=== PATIENT | male | born 1945 | race Caucasian/White ===

== ENCOUNTER 2023-09-19 12:51 | Inpatient (IN) | payer MEDICARE, OTHER, SELFPAY ==
[2023-09-19] VITALS (9 sets, daily range): BP systolic 124–159; BP diastolic 70–94; BMI 31.6; BMI 34.6
[2023-09-19 10:37] LABS: % Basophils 0.2 % (0-2); % Immature Granulocytes 2.6 % (0-0.5); % Lymphocytes 5.5 % (20.5-51.1); % Monocytes 6.7 % (1.7-9.3); Absolute Basophils 0.1 10^3/uL (0-0.2); Absolute Immature Granulocytes 0.6 10^3/uL (0-0.05); Absolute Lymphocytes 1.2 10^3/uL (1.2-3.4); Absolute Monocytes 1.4 10^3/uL (0.1-0.6); Absolute Neutrophils 18.4 10^3/uL (1.4-6.5); Hematocrit 40.6 % (39.0-52.0); Hemoglobin 13.9 g/dL (13.0-18.0); Mean Corp Hgb Conc. 34.2 g/dL (33.0-37.0); Mean Corpuscular Hgb 30.4 pg (27.0-31.0); Mean Corpuscular Volume 88.8 fL (80.0-94.0); Mean Platelet Volume 11.3 fL (7.4-10.4); Nucleated Red Blood Cells % 0 % (-); Platelet Count 167 10^3/uL (130-400); Red Blood Cell Count 4.57 10^6/uL (4.70-6.10); Red Cell Dist. Width 13.4 % (11.5-14.5); White Blood Cell Count 21.6 10^3/uL (4.8-10.8)
[2023-09-19] MEDS: ZOFRAN 4 MG IV (10:40)
[2023-09-19] MEDS: NSS 1000 IV (10:40)
[2023-09-19] MEDS: CARDIZEM 20 MG IV (10:43)
[2023-09-19] MEDS: CARDIZEM 125 IV (10:44)
[2023-09-19 10:47] LABS: Urine Albumin 3+ (Neg - Trace); Urine Bilirubin 1+ (Negative); Urine Character Very Cloudy (Clear); Urine Color Brown; Urine Glucose 2+ (Negative); Urine Ketone 1+ (Negative); Urine Leukocyte 2+ (Negative); Urine Nitrite Positive (Negative); Urine Occult Blood 4+ (Negative); Urine Specific Gravity 1.025 (<1.030); Urine Urobilinogen 1+ (Neg - 1+)
--- NOTE | 2023-09-19 10:47 | EDRN ---
the pt started to vomit, this RN called extra staff into the room to assist this RN in repositioning the pt, the pts mouth was suctioned, and Dr. Beaver came to the pts bedside and ordered Zofran IV, IVF Bolus, and Cardizem for the pt, this RN
noticed that the pt Sp02 dipped to 90%, 4L NC was placed on the pt, provider was made aware, the pt is resting in stretcher in the lowest position, side rails up x2, call pyle within reach, HOB elevated, the pts heart rate is now in the 70-80's
after Cardizem bolus and gtt, cardizem gtt currently running at 10mg/hour, sp02 now 96% on 4L NC, awaiting for the pts family to come at the pts bedside, will continue to monitor the pt closely
[2023-09-19 10:51] LABS: COVID-19 Antigen Negative (Negative)
[2023-09-19 10:58] LABS: Urine Bacteria Many (Negative); Urine Red Blood Cell 30-40 /HPF (0-2); Urine White Cell 50-60 /HPF (0-5)
[2023-09-19 11:00] LABS: ALT (SGPT) 39 U/L (0-50); AST (SGOT) 52 U/L (17-59); Albumin 4.1 g/dl (3.5-5.0); Alkaline Phosphatase 66 U/L (38-126); Blood Urea Nitrogen 19 mg/dl (9-20); Carbon Dioxide 23 mmol/L (22-30); Chloride 99 mmol/L (98-107); Estimated Creatinine Clearance 53 ml/min; Glucose 225 mg/dl (70-99); Potassium 3.9 mmol/L (3.5-5.1); Sodium 133 mmol/L (135-145); Total Bilirubin 3.5 mg/dl (0.2-1.3); eGFR 52.09
[2023-09-19 11:01] LABS: Lactic Acid 4.9 mmol/L (0.7-2.0)
--- NOTE | 2023-09-19 11:06 | EDRN ---
the pts daughter and grandaughter are currently at the pts bedside
[2023-09-19 11:14] LABS: Troponin I 0.048 ng/ml
--- NOTE | 2023-09-19 11:18 | EDRN ---
the pts troponin came back elevated, Dr. Beaver notified
[2023-09-19 11:29] LABS: TSH 1.35 uIU/ml (0.47-4.68)
--- NOTE | 2023-09-19 11:48 | ED.GENMED ---
History of Present Illness
General
Chief Complaint: Weakness
Source: patient, records, family and ambulance crew
Exam Limitations: clinical condition, altered mental status and dementia
Time Seen by Provider: 09/19/23 10:14
Nursing documentation reviewed up to this point in time: agreed with
Travel History
Have you had any contact with someone who has COVID-19?: No
Do you have any symptoms of coronavirus? Fever > 100 degrees, chills, cough, shortness of breath, sore throat, loss of taste or smell, muscle aches, or headache?: No
History of Present Illness
History of Present Illness:
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 Patient has
not had a cough. Last night patient seemed more disoriented than normal and fell. Patient is on Eliquis. Patient was incontinent of urine at that time. Patient has not had a cough or appeared short of breath. Patient was having shaking episodes
yesterday with chills. Patient felt febrile. On the way to the hospital via EMS the patient did vomit 2 times.
Past History
Past History
ED Past Medical History: Arrthythmia (Atrial fib), CVA (Left sided weakness), HTN, Hypercholesterolemia, NIDDM and Seizures
ED Past Surgical History: None
Social History
Tobacco: Former smoker
Alcohol: Occasional
Personal:
Living: with family
Review of Systems
Review of Systems
All Other Systems: ROS reviewed and negative except as documented in HPI and ROS
Constitutional: Reports fever, fatigue and chills
EENT: Reports no symptoms
Respiratory: Reports no symptoms
Cardiac: Reports no symptoms
ABD/GI: Reports vomiting and anorexia; Denies abdominal pain or diarrhea
: Reports incontinence
Musculoskeletal: Reports no symptoms
Skin: Reports no symptoms
Neurological: Reports weakness (Generalized on top of chronic left-sided but ambulates on own normally)
Phy Exam
Physical Exam
Physical Exam:
Physical Exam
General: mild to moderate distress, alert but less interactive than normal, well nourished, dry mucous membranes
HENT: Normocephalic, supple with no lymphadenopathy, no thyromegaly
Eyes: Clear sclera, conjuctiva without injection
Heart: Regular irregular irregular rhythm and tachycardic rate. No S3, S4. No murmur. No NVD
Lungs: No respiratory distress, no stridor, lung sounds are coarse but clear and equal bilaterally, chest wall symmetrical and nontender
Abdomen: Soft, nontender, no organomegaly, no CVA tenderness, BS good
Skin: no rash. Warm to the touch
Psychiatric: well kept. interactive and cooperative
Extremities: No edema, cyanosis, tenderness, Good and equal peripheral pulses.
Course
Orders/Labs/Results
Orders:
Orders
09/19/23 10:12
Electrocardiogram (*1) Urgent
Reason for Study: Vertigo / Dizzy
09/19/23 10:13
EKG- Treatment ONCE
09/19/23 10:19
COVID-19 Antigen Urgent
Source: Nasal Swab
Complete Blood Count/With Diff Urgent
Comprehensive Metabolic Panel Urgent
Lactic Acid Urgent
TSH Urgent
Troponin I Urgent
Blood Culture Urgent
MAHAMED Source: Blood/Venous
Specimen Description:
Influenza A+B Rapid Molecular Urgent
MAHAMED Source: Nasal Swab
Specimen Description:
09/19/23 10:22
Urinalysis Reflex To Culture Urgent
Date Specimen was Collected: 09/19/23
Time Specimen was Collected: 10:20
Urine Microscopic Reflex Cult Urgent
Urine Culture Urgent
MAHAMED Source: U
Specimen Description:
Date Specimen was Collected: 09/19/23
Time Specimen was Collected: 10:20
09/19/23 10:25
Blood Culture Urgent
MAHAMED Source: Blood/Venous
Specimen Description:
09/19/23 10:35
Ondansetron Injectable [Zofran] 4 mg .ROUTE .STK-MED ONE
09/19/23 10:38
0.9% Sodium Chloride 1000 ml [Nss] 1,000 ml IV BOLUS
Diltiazem HCl [Cardizem] 20 mg IV NOW STA
Ondansetron Injectable [Zofran] 4 mg IV NOW STA
09/19/23 10:40
Ondansetron Injectable [Zofran] 4 mg IV NOW STA
09/19/23 10:45
Diltiazem 125 mg/125 ml Nss [Cardizem] 125 mg in 125 ml IV PER PROTOCOL
Initial dose in mg/hr, then titrate:: 10
Titrate to keep:: Heart rate 80-100 bpm
Titrate by mg/hr:: 5 mg/hr
Frequency of titrations (minutes):: 15
Maximum dose in mg/hr:: 15
09/19/23 10:55
Abdominal Series [CR Obstruct Series W/pa Chest] Urgent
Comment:
Reason For Exam: vomiting possible aspiration and distension
09/19/23 10:58
Add On- LAB Urgent
Tests Added?: keppra level
09/19/23 11:11
Keppra (Levetiracetam) [S] Routine
Abnormal Lab Results
09/19/23 09/19/23
10:19 10:22
WBC 21.6 H 10^3/uL
(4.8-10.8)
RBC 4.57 L 10^6/uL
(4.70-6.10)
MPV 11.3 H fL
(7.4-10.4)
Abs Immat Gran (auto) 0.6 H 10^3/uL
(0-0.05)
Absolute Neuts (auto) 18.4 H 10^3/uL
(1.4-6.5)
Absolute Monos (auto) 1.4 H 10^3/uL
(0.1-0.6)
Immature Gran % 2.6 H %
(0-0.5)
Neutrophils % 85.0 H %
(42.2-75.2)
Lymphocytes % 5.5 L %
(20.5-51.1)
Sodium 133 L mmol/L
(135-145)
Creatinine 1.4 H mg/dL
(0.7-1.3)
Glucose 225 H mg/dl
(70-99)
Lactic Acid 4.9 H* mmol/L
(0.7-2.0)
Total Bilirubin 3.5 H mg/dl
(0.2-1.3)
Troponin I 0.048 H* ng/ml
Urine Ketones 1+ A
(Negative)
Ur Occult Blood Reflex 4+ A
(Negative)
Urine Nitrite (Reflex) Positive A
(Negative)
Urine Bilirubin 1+ A
(Negative)
Leukocyte Esterase Rfl 2+ A
(Negative)
Urine RBC 30-40 A /HPF
(0-2)
Urine WBC (Reflex) 50-60 A /HPF
(0-5)
Urine Bacteria (Reflex) Many A
(Negative)
Urine Glucose 2+ A
(Negative)
Urine Albumin (Reflex) 3+ A
(Neg - Trace)
09/19/23 10:19
09/19/23 10:19
Vital Signs
Initial and Last Documented VS:
Initial Vital Signs
Temp Pulse Resp BP Pulse Ox
99.6 F 125 22 159/94 96
09/19/23 10:14 09/19/23 10:14 09/19/23 10:14 09/19/23 10:14 09/19/23 10:14
Last Documented Vital Signs
Temp Pulse Resp BP Pulse Ox
99.6 F 116 22 159/94 96
09/19/23 10:14 09/19/23 10:43 09/19/23 10:14 09/19/23 10:43 09/19/23 10:14
*Radiology
Radiology exam reviewed: radiology read reviewed (Unremarkable)
*Pulse Oximetry
Patient hypoxic: no
Comment: Borderline at 90% on room air
*EKG
Interpreted by ED Provider?: Yes
EKG Intrepretation Date: 09/19/23
EKG Intrepretation Time: 11:58
Interpretation: abnormal
Comparison EKG: no changes
Heart Rate: 121
Rate: tachycardiac
Rhythm: a-fib
Acme: normal axis
Interval: normal QT interval
QRS Pattern: right bundle branch block
Ischemia: non-specific ST changes
*Display Artist Interpretation
Rate: tachycardiac
Interpretation: abnormal
Heart Rate: 130
Rhythm: a-fib
*Critical Care Note
Total Time (30-74mins, 75-104mins- exclusive of procedures): 45 minutes
ED Attending Note
-
Portions of this chart may have been created with voice recognition software.� Occasional wrong word or��sound alike� substitutions may have occurred due to the inherent limitations of voice recognition software.
Discharge Plan
Departure
Patient Disposition: Admit
Date of Disposition: 09/19/23
Time of Disposition: 11:59
Admit to: Telemetry
Admit to doctor: Hospitalist
Presentation/result/management discussed w/ accepting MD/DO: Hospitalist
Patient with high blood pressure during this ER visit?: Yes
Condition: Serious
Covid-19: Negative COVID-19
Discharge Problem:
Sepsis, UTI (urinary tract infection), Atrial fibrillation with rapid ventricular response
Prescriptions:
No Action
atorvastatin 40 mg Tablet
40 mg PO DAILY
trazodone 50 mg Tablet
50 mg PO HS
levetiracetam 500 mg Tablet
500 mg PO Q12H
aspirin 81 mg Tablet,Delayed Release (Dr/Ec)
81 mg PO DAILY
metoprolol tartrate 25 mg Tablet
25 mg PO BID
Eliquis 5 mg Tablet
5 mg PO BID
Referrals:
Bishnu Gonzalez MD [Family Provider] -
Interventions
Interventions:
*Risk Screen - Suicide Last Done: 09/19/23 10:14
*General Assessment Last Done: 09/19/23 10:14
*Neglect/Abuse Screening Last Done: 09/19/23 10:14
ED- Fall Risk Assessment Last Done: 09/19/23 10:14
*ED COVID-19 Vaccine History Last Done: 09/19/23 10:14
ED- Cardiac Assessment Last Done: 09/19/23 10:14
ED- Neurological Assessment Last Done: 09/19/23 10:14
ED- Pulmonary Assessment Last Done: 09/19/23 10:14
--- NOTE | 2023-09-19 11:52 | EDRN ---
the pt came back from xray and this RN noticed that the pts gown was soiled and this RN and another nurse Mónica RN cleaned the pt and changed the pts gown and linens, the pt was repositioned in stretcher, the pt is resting in stretcher in the
lowest position, side rails up x2, call pyle within reach, HOB elevated, VS WNL, the pt is in Afib in the 80's, Cardizem currently still running at 10mg/hour, the pt is currently still on 4L NC Sp02 96%, will continue to monitor the pt closely
[2023-09-19] MEDS: MAXIPIME 2000 MG IV (11:57)
[2023-09-19] MEDS: NSS 2000 ML IV (12:02)
[2023-09-19] MEDS: GENTAMICIN 55 MG IV (12:35)
--- NOTE | 2023-09-19 12:45 | HPS.HSE ---
Addendum entered and electronically signed by Irvin Turner MD 09/19/23 16:43:
I saw and examined the patient.
The SHOP GIRL's note was reviewed and I agree with the note.
78-year-old male with past medical history of essential hypertension, hyperlipidemia, history of CVA, dementia, A-fib, history of seizure was brought in by family after patient was noted to be more confused. Patient was also having chills/rigors,
unclear if had any fever. At baseline patient able to communicate his needs, no reported sundowning. Patient usually pleasant and enjoy day-to-day activities. Patient somnolent and not able to provide any information, patient family at bedside
and able to provide detailed information.
HEENT: No pallor, cyanosis, or jaundice.
NECK: Supple. No JVD.
RESPIRATORY: Lungs clear to auscultation.
CVS: S1, S2 normal. RRR. No murmur, rub or gallop.
ABDOMEN: Soft, non-tender. No distension. BS+/normal.
EXTREMITIES: No peripheral cyanosis or edema.
PHYSICIAN PRACTICE CONSULTANT: AOx3. No focal deficits.
UTI/Sepsis
-UA showing significant pyuria/bacteriuria
-Urine culture blood culture ordered
-Maintain on empiric Rocephin
Afib/rvr
-On Cardizem drip, transition to oral metoprolol once mentation improved
TME from sepsis
Dementia without behavioral problems
-May require nighttime antipsychotics/mitts if any signs of sundowning
Full code
Original Note:
Family Physician
-
Family Physician: Bishnu Gonzalez
Chief Complaint
-
Confusion and Urinary Incontinence
History of Present Illness
Pt is a 78yo M w/ a PMH of HTN, HLD, Atrial Fibrillation, Dementia and CVA w/ left sided weakness and a single post stroke seizure who is presenting to the ED via EMS after having been found by his granddaughter around midnight after a fall. The
daughter and granddaughter report him being drowsy and sleeping a lot yesterday. They state that otherwise he seemed to just be having one of his 'bad days.' They state he was incontinent of urine several times throughout the night which is abnormal
for him. They state he refused to eat this morning and they were able to spoon feed him, but he was unable to comprehend basic commands or take a step forward this morning, again which is not his norm. They called EMS who reported he vomited twice
on the way here. Patient is unable to provide any history due to dementia and language barrier.
Medical History
Past Medical History
Past Medical History: Reports Other
Additional Past Medical History:
CVA with Left Hemiparesis
Seizure Disorder
Atrial Fibrillation
Essential Hypertension
Hyperlipidemia
Past Surgical History: Reports Other
Additional Past Surgical History:
Appendectomy
Social History
Tobacco: Non-smoker
Alcohol: None
Family History
Family History: Unable to Obtain
Allergies / Home Medications
Allergies reflects when Allergies were last updated in [facility].
Home Medications with original date entered in [facility]
Allergy/Medication List:
Allergies
Allergy/AdvReac Type Severity Reaction Status Date / Time
No Known Allergies Allergy Verified 10/16/20 11:31
Home Medications
apixaban 5 mg tablet (Eliquis) 5 mg PO BID 09/19/23
aspirin 81 mg tablet,delayed release 81 mg PO DAILY 09/19/23
atorvastatin 40 mg tablet 40 mg PO DAILY 09/19/23
levetiracetam 500 mg tablet 500 mg PO Q12H 09/19/23
metoprolol tartrate 25 mg tablet 25 mg PO BID 09/19/23
trazodone 100 mg tablet 100 mg PO QPM 09/19/23
Review of Systems
-
Unable to obtain full review of systems at this time due to: Dementia
Physical Exam
Vital Signs
Vital Signs
Temp Pulse Resp BP Pulse Ox
99.6 F 76 25 136/78 96
09/19/23 10:14 09/19/23 12:00 09/19/23 12:00 09/19/23 12:00 09/19/23 12:00
Physical Exam
General: Well Developed and Well Nourished
HEENT: NormoCephalic and Atraumatic
Respiratory: Clear and Non Labored Respirations
Cardiac: S1/S2 and Irregular Rhythm; No Tachycardia
GI: Soft and Non Tender
Rectal: Deferred by Provider
Musculoskeletal: No Clubbing, No Cyanosis and No Edema
Skin: Warm and Dry
Neuro: Other (Unable to participate in neurologic evaluation due to dementia and language barrier)
Laboratory Results
-
09/19/23 10:19
09/19/23 10:19
Laboratory Results
Lactic Acid 4.9 mmol/L (0.7-2.0) H* 09/19/23 10:19
Total Bilirubin 3.5 mg/dl (0.2-1.3) H 09/19/23 10:19
AST 52 U/L (17-59) 09/19/23 10:19
ALT 39 U/L (0-50) 09/19/23 10:19
Alkaline Phosphatase 66 U/L (38-126) 09/19/23 10:19
Troponin I 0.048 ng/ml H* 09/19/23 10:19
Data Reviewed
-
Lab Data: Labs Reviewed by me
Impression/Plan
-
Severe Sepsis secondary to Urinary Tract Infection
-Continue Rocephin
-Await urine and blood cultures
-Trend Lactic Acid and WBC Count
Atrial Fibrillation with Rapid Ventricular Response
-Rate controlled on Diltiazem drip - Wean as tolerated
-Continue Eliquis for anticoagulation
-Continue Metoprolol
Non-NV Troponin Elevation secondary to Sepsis and A-Fib with RVR
-Continue to trend troponin
Hyperlipidemia
-Continue atorvastatin
CVA with Left Hemiparesis
-Continue aspirin
-Consult PT/OT
Seizure Disorder
-Continue Levetiracetam
Dementia
-Monitor for mood/behavior changes
-Continue trazodone for insomnia
DVT proph: Eliquis
Code Status: Full Code
--- NOTE | 2023-09-19 13:10 | EDRN ---
this RN entered the pts room to check on the pt and this RN noticed that the pts gown was soiled with urine, this RN and another RN Mónica cleaned the pt up, the pt attempted to hit this RN despite this RN using director visual to explain to the pt what
this RN and Mónica RN were going to do, the pt was cleaned up, new gown, new pad, and new linens were placed, the pts cardizem gtt is currently off, VS WNL, Afib in the 's, 4L NC Sp02 96%, will continue to monitor the pt closely
--- NOTE | 2023-09-19 14:17 | EDRN ---
this RN called the receiving unit and notified them that paper report was going to be tubed up
[2023-09-19 14:23] LABS: Troponin I 0.073 ng/ml
--- NOTE | 2023-09-19 14:23 | EDRN ---
this RN entered the pts room to check on the pt and this RN noticed that the pt was soiled with urine, this RN and another RN Mónica cleaned the pt, the pt was compliant and cooperative with staff, gown, pad, and linens were changed, the pt was
repositioned for comfort, the pt is in Afib in the 80-90's, Cardizem gtt has been off per Arti COBURN, the pt is currently still on 4L NC Sp02 96%, the pt is resting in stretcher in the lowest position, side rails up x2, call pyle within
reach, HOB elevated, will continue to monitor the pt closely
--- NOTE | 2023-09-19 14:24 | EDRN ---
Troponin came back and is trending up, provider notified
[2023-09-19 15:26] LABS: Lactic Acid 2.2 mmol/L (0.7-2.0)
--- NOTE | 2023-09-19 15:56 | PTCARENOTE ---
Received patient from ED via stretcher. AAOx1 confused and forgetful. Pulled over from stretcher to bed. Assessed and oriented to room. Bed alarm in place for safety. manager helpdesk reading Afib 90s. Will continue to monitor closely.
--- NOTE | 2023-09-19 16:52 | CON.CAR ---
Addendum entered and electronically signed by Matt Marrero DO 09/19/23 20:34:
I saw and examined the patient.
The Steam Press Operator's note was reviewed and I agree with the note.
Comment:
Plan:
Cardiology consulted for aFib with RVR now improved
Pt with apparent hx of AFib on Eliquis and beta chidi
Await records
Check echo
Head CT negative for acute changes
Trend troponin until they peak
Cont supportive care
Original Note:
Consultation
Consultation Request
Date/Time Consultation Performed: 09/19/23
Requesting Provider: Deneen Blanchard PA-C
Performing Provider: Deanna Judge PA-C for Dr. Marrero
Reason for Consultation: afib with RVR
Medical History
-
Chief Complaint: weakness, lethargy
History of Present Illness:
Patient is a 78-year-old male with past medical history of dementia, stroke secondary to atrial fibrillation, subsequent seizure disorder, residual left hemiparesis, hyperlipidemia who presented to [facility] due to weakness and lethargy.
Daughter who patient lives with has noted decreased appetite. Patient fell last evening, and is chronically on Eliquis. He was incontinent of urine with his fall. He has had chills at home as well. He is being treated for UTI. Cardiology
consulted as was noted to have rapid rates in atrial fibrillation upon arrival, which now appears to be improved. He is chronically on Lopressor 25 mg twice daily and Eliquis. Of note he did vomit [address] to the hospital, but without
nausea at present. Denies chest pain. He is confused at times upon interview, states his primary assembler wet wash is associated with [facility], however no record of this.
HPI:
dementia
history of CVA with residual L hemiparesis
atrial fibrillation, unknown chronicity
chronic OAC with eliquis
chronic RBBB
seizure disorder
HTN
HLD
Past Medical History
Past Medical History: Other (in HPI)
Social History
Tobacco: Non-Smoker
Living: With Family
Allergies / Home Medications
Allergy/AdvReac Type Severity Reaction Status Date / Time
No Known Allergies Allergy Verified 10/16/20 11:31
Medication Instructions Recorded Confirmed Type
apixaban 5 mg tablet (Eliquis) 5 mg PO BID Blood Clot 09/19/23 09/19/23 History
Prevention/Tx
aspirin 81 mg tablet,delayed 81 mg PO DAILY Blood Clot 09/19/23 09/19/23 History
release Prevention/Tx
atorvastatin 40 mg tablet 40 mg PO DAILY High Cholesterol 09/19/23 09/19/23 History
levetiracetam 500 mg tablet 500 mg PO Q12 Seizures 09/19/23 09/19/23 History
metoprolol tartrate 25 mg tablet 25 mg PO BID Blood Pressure 09/19/23 09/19/23 History
trazodone 100 mg tablet 100 mg PO QPM sleep 09/19/23 09/19/23 History
Review of Systems
-
History Source: Patient
All other systems: Negative unless noted
Physical Exam
Vital Signs
Temp Pulse Resp BP Pulse Ox
99.9 F 88 20 130/78 96
09/19/23 15:00 09/19/23 15:00 09/19/23 15:00 09/19/23 15:00 09/19/23 15:59
Lab Results
09/19/23 10:19
09/19/23 10:19
Troponin I 0.073 ng/ml H* D 09/19/23 13:51
Physical Exam
General: No Apparent Distress, Comfortable and Other (on supp O2)
HEENT: Normocephalic, Anicteric and Moist Mucous Membranes
Respiratory: Clear and Non Labored Respirations
Cardiac: S1/S2 and Irregular Rhythm
GI: Soft, Non Tender, Non Distended and Normal Bowel Sounds
Musculoskeletal: No Clubbing, No Cyanosis and No Edema
Skin: Warm and Dry
Neuro: Awake, Alert and Oriented (to self)
Impression / Plan
-
Primary assembler wet wash: unknown
Assessment:
Presentation with lethargy, weakness
UTI
Leukocytosis
JANEY
Elevated lactic acid
Presumed TME
elevated troponin, suspected nonMI trop elevation
dementia
history of CVA with residual L hemiparesis
atrial fibrillation, unknown chronicity
chronic OAC with eliquis
chronic RBBB
seizure disorder
HTN
HLD
ECHO 09/19/23: pending
Plan:
-Patient presents with lethargy and weakness found to have UTI and evidence of sepsis. Continue treatment with antibiotics per primary service
-head CT negative for acute abnormality, but with evidence of prior CVA
-Cardiology consulted as patient was noted to have atrial fibrillation with rapid rates in the emergency room, this appears to be improved currently by review of tele. Will continue outpatient Lopressor 25 mg twice daily. Will add IV Lopressor PRN
-echo pending
-continue eliquis
-BP stable
-trend trops to peak. no complaints of CP. suspected nonMI trop elevation. continue OP asa, statin
-will attempt to obtain records in AM
Data Reviewed
-
EKG: Tracing Personally Visualized and interpreted
Labs: Labs Reviewed by me
Old Records: Reviewed
[2023-09-19] MEDS: ROCEPHIN 1000 MG IV (17:18)
[2023-09-19] MEDS: STERILE WATER FOR INJECTION 10 ML IV (17:18)
[2023-09-19] MEDS: KEPPRA 500 MG PO (17:18)
[2023-09-19] MEDS: DESYREL 100 MG PO (17:18)
[2023-09-19] MEDS: TYLENOL 650 MG PO (17:19)
[2023-09-19 20:26] LABS: Troponin I 0.072 ng/ml
[2023-09-19] MEDS: ELIQUIS 5 MG PO (21:53)
[2023-09-19] MEDS: LOPRESSOR 25 MG PO (21:59)
[2023-09-20] VITALS (8 sets, daily range): BP systolic 109–152; BP diastolic 65–102; PULSE 71; BMI 33.6
[2023-09-20] MEDS: KEPPRA 500 MG PO ×2 (04:00→17:20)
--- NOTE | 2023-09-20 05:05 | PTCARENOTE ---
Pt aaox2-3 forgetful at times. Pt able to communicate in swedish at times, at times speaks in ukranian. Pt doesn't like when trying to provide nursing care or changing pt if incontinent. Pt gets agitated at times with staff ,pt was provided with
psychological & emotional support. Pt on fall precautions & medsitter in place.LAMP TESTER AND INSPECTOR electrification adviser made aware of pt Blood culture results. Plan of care continued as ordered.
[2023-09-20] MEDS: TYLENOL 650 MG PO ×3 (05:29→18:52)
[2023-09-20] MEDS: LOPRESSOR 5 MG IV ×2 (06:42→18:47)
--- NOTE | 2023-09-20 07:42 | PTCARENOTE ---
Pt provided with prn tylenol as ordered for fever & pt provided with prn metoprolol as ordered. Pt incontinent of urine.Pt was bladder scanned for 73ml post void.Plan of care continued. Report provided to day nurse.
[2023-09-20 08:01] LABS: Hematocrit 39.9 % (39.0-52.0); Hemoglobin 13.4 g/dL (13.0-18.0); Mean Corp Hgb Conc. 33.6 g/dL (33.0-37.0); Mean Corpuscular Hgb 30.7 pg (27.0-31.0); Mean Corpuscular Volume 91.3 fL (80.0-94.0); Mean Platelet Volume 11.4 fL (7.4-10.4); Platelet Count 124 10^3/uL (130-400); Red Blood Cell Count 4.37 10^6/uL (4.70-6.10); Red Cell Dist. Width 13.5 % (11.5-14.5); White Blood Cell Count 14.5 10^3/uL (4.8-10.8)
[2023-09-20] MEDS: LOPRESSOR 25 MG PO ×2 (08:16→22:32)
[2023-09-20] MEDS: ASPIR LOW (ENTERIC COATED) 81 MG PO (08:16)
[2023-09-20] MEDS: ELIQUIS 5 MG PO ×2 (08:16→20:10)
[2023-09-20] MEDS: LIPITOR 40 MG PO (08:16)
[2023-09-20 08:34] LABS: Blood Urea Nitrogen 22 mg/dl (9-20); Calcium 8.5 mg/dl (8.4-10.2); Carbon Dioxide 22 mmol/L (22-30); Chloride 106 mmol/L (98-107); Estimated Creatinine Clearance 54 ml/min; Glucose 127 mg/dl (70-99); Sodium 136 mmol/L (135-145); eGFR 56.93
--- NOTE | 2023-09-20 10:21 | PTOTSP ---
Speech Language Pathology
Pt seen for clinical bedside swallow evaluation. P.O. trials of puree, regular solids, and thin liquids provided. Slightly prolonged mastication of regular solids noted secondary to limited dentition, but this was functional given additional time.
No overt signs of aspiration.
Recommend:
(1) Regular solids/thin liquids when medically appropriate
(2) General aspiration precautions
(3) Meds as tolerated
(4) BOARD CERTIFIED BEHAVIORAL ANALYST to continue to follow
--- NOTE | 2023-09-20 13:19 | W.PN.CARDCBS ---
Addendum entered and electronically signed by Basia Moseley DO 09/20/23 16:37:
I saw and examined the patient.
The Staff Air Defense Officer's note was reviewed and I agree with the note.
Comment: Seen and examined with patient's and granddaughter at bedside. Offers no specific complaints; translation assisted by granddaughter
GEN: Appears ill but nontoxic. Temperature 101.2. 94% on room air
HEENT: mmm
LUNGS: CTA B/L, no wheezes/rales; decreased
CV: Irreg, S1/S2, no murmur
ABD: soft, BS+, NT/ND
EXT: No cyanosis, clubbing, edema
Plan:
Persistent atrial fibrillation now with rapid ventricular response in the setting of E. coli UTI/bacteremia
-Patient has a hoop bending machine operator, Dr. Ward at [facility]
-Continue Eliquis anticoagulation
-Rate control with metoprolol, will increase dose with hold parameters
-Echocardiogram 09/19/2023 with normal biventricular size and systolic function. Mild aortic regurgitation without stenosis. Trace mitral and tricuspid agitation. Pulmonary artery pressure normal, 20 mmHg. No pericardial effusion
-elevated troponin, suspected nonMI trop elevation
E. coli UTI/bacteremia
-Antibiotics per primary
History of right MCA CVA and seizure
-No acute abnormality on CT head on admission
-Continue anticoagulation with atrial fibrillation
Original Note:
Today's Communication / Plan
-
consider increasing lopressor dose for improved rate control
continue treatment of UTI
continue eliquis
Impression / Plan
-
Primary hoop bending machine operator: unknown
Assessment:
Presentation with lethargy, weakness
UTI
Leukocytosis
JANEY
Elevated lactic acid
Presumed TME
elevated troponin, suspected nonMI trop elevation
dementia
history of CVA with residual L hemiparesis
atrial fibrillation, unknown chronicity
chronic OAC with eliquis
chronic RBBB
seizure disorder
HTN
HLD
ECHO 09/19/23: EF 55 to 60%, mild AR, trace TR, PAP 20 mmHg
Plan:
-Overall heart rate trends acceptable however brief periods of tachy noted on review of tele. Blood pressure stable. Could consider attempting to increase Lopressor dose for improved rate control
-echo with results as above
-continue eliquis
-trop peaked at 0.073. no CP. suspected nonMI trop elevation. continue OP asa, statin
-continue treatment of UTI per primary service
Progress Note - Religious Studies Professor
Subjective
Date of Service: September 20, 2023
no CP, SOB. reports HRs improved.
Objective
Labs:
09/20/23 07:35
09/20/23 07:35
Labs
Hgb 13.4 g/dL (13.0-18.0) 09/20/23 07:35
Hct 39.9 % (39.0-52.0) 09/20/23 07:35
Plt Count 124 10^3/uL (130-400) L D 09/20/23 07:35
Sodium 136 mmol/L (135-145) 09/20/23 07:35
Potassium 4.0 mmol/L (3.5-5.1) 09/20/23 07:35
BUN 22 mg/dl (9-20) H 09/20/23 07:35
Creatinine 1.3 mg/dL (0.7-1.3) 09/20/23 07:35
Glucose 127 mg/dl (70-99) H 09/20/23 07:35
Troponins
09/19/23 09/19/23 09/19/23
10:19 13:51 19:55
Troponin I 0.048 H* 0.073 H* D 0.072 H*
Vital Signs and I&O:
Vital Signs
Temp Pulse Resp BP Pulse Ox
97.8 F 97 20 117/77 95
09/20/23 11:23 09/20/23 11:23 09/20/23 11:23 09/20/23 11:23 09/20/23 11:23
Vital Signs
Temp Pulse Resp BP Pulse Ox
97.8 F 97 20 117/77 95
09/20/23 11:23 09/20/23 11:23 09/20/23 11:23 09/20/23 11:23 09/20/23 11:23
Physical Exam
Physical Exam
GEN: No distress, awake, alert, oriented to self.
HEENT: supple, anicteric, mmm, eomi
LUNGS: CTA B/L, no wheezes/rales
CV: Irreg, S1/S2, no murmur
ABD: soft, BS+, NT/ND
EXT: No cyanosis, clubbing, edema
NEURO: Gross non-focal
SKIN: Warm, pink, dry. No rash
--- NOTE | 2023-09-20 15:46 | W.PN.HOSP.TC ---
Today's Communication/Plan
-
pt/ot
f/u blood cs report
continue abx
Assessment / Plan
Assessment / Plan
UTI/Sepsis
Ecoli UTI/Bacteremia
-UA showing significant pyuria/bacteriuria
-Urine culture blood culture growing ecoli
-Maintain on empiric Rocephin
Afib/rvr
-started on oral metoprolol as tolerating diet
-cardio help appreciated
TME from sepsis
Dementia without behavioral problems
-May require nighttime antipsychotics/mitts if any signs of sundowning
Right MCA area CVA
h/o seizure
- maintain on keppra
- maintain on asa/statin
Full code
Spouse updated
Anticipated Discharge: 24 - 48 hours
Subjective/Interval History
-
Date of Service: September 20, 2023
mentation better
HR better controlled
no behavioral problems overnight
Objective Data
-
Labs:
Laboratory Results
09/20/23
07:35
WBC 14.5 H
Hgb 13.4
Hct 39.9
Plt Count 124 L D
Sodium 136
Potassium 4.0
Chloride 106
Carbon Dioxide 22
BUN 22 H
Creatinine 1.3
Glucose 127 H
Calcium 8.5
Vital Signs:
Vital Signs
Temp Pulse Resp BP Pulse Ox
100.8 F H 97 20 117/77 95
09/20/23 13:30 09/20/23 11:23 09/20/23 11:23 09/20/23 11:23 09/20/23 11:23
Review of Systems
-
All other systems: Reviewed and negative
Physical Exam
-
General: No Apparent Distress and Comfortable
HEENT: Negative Oxygen
Respiratory: Clear to Auscultation
Cardiac: Regular Rhythm and S1/S2; Negative Murmur or Rub
GI: Soft, Nontender and Nondistended
Musculoskeletal: No Edema
Neuro: Awake, Alert, Oriented, No Motor Deficits and Nonfocal/Grossly Intact
Psych: Calm
[2023-09-20] MEDS: ROCEPHIN 1000 MG IV (15:57)
[2023-09-20] MEDS: STERILE WATER FOR INJECTION 10 ML IV (15:57)
[2023-09-20] MEDS: DESYREL 100 MG PO (17:20)
--- NOTE | 2023-09-20 21:40 | DOWNTIME ---
There was a [employer] Client Aging Department Supervisor Downtime on 09/20/2023 from 0111 to 09/20/2023 at 0405. Downtime documentation of patient's care, including medication administrations, has been reconciled in the electronic record per guidelines. Refer to the
patient's paper chart under the miscellaneous tab to see printed paper medication records and downtime forms.
[2023-09-21 00:36] LABS: Keppra (Levetiracetam) 16 ug/mL (10-40)
[2023-09-21 03:28] VITALS: BP 158/97
[2023-09-21] MEDS: KEPPRA 500 MG PO ×2 (04:47→16:50)
[2023-09-21] MEDS: TYLENOL 650 MG PO ×2 (05:00→14:10)
[2023-09-21 05:45] VITALS: BMI 33.5
[2023-09-21 07:55] VITALS: BP 138/84
--- NOTE | 2023-09-21 08:03 | PN.CDI ---
CDI
- -
CDI:
Physician Documentation Request
Admit Date: 09/19/23 12:51
Dear Doctor Johnny,
Please review the following and provide your response in the progress notes.
Clinical Indicators:
Laboratory Tests
09/19/23 09/19/23
10:19 13:51
Lactic Acid 4.9 H* 2.2 H
Based on the above, please clarify in the progress notes, the appropriate diagnosis, if significant, that supports the above abnormalities and additional evaluation, monitoring and/or treatment rendered:
Lactic acidosis, POA, now resolved
Abnormal lab value, elevated lactic acid, clinically insignificant
Other
Use of terms such as suspected, likely, concern for, or probable (associated with a specific diagnosis that is being evaluated, monitored, or treated as if it exists) are acceptable and can be coded in the inpatient setting, when documented at the
time of discharge.
Thank you,
Katelyn Head RN BSN CCDS
CDI Specialist
please contact via tiger text
Please use your independent medical judgment in providing your response.
[2023-09-21 08:22] LABS: Hematocrit 35.1 % (39.0-52.0); Hemoglobin 11.8 g/dL (13.0-18.0); Mean Corp Hgb Conc. 33.6 g/dL (33.0-37.0); Mean Corpuscular Hgb 30.6 pg (27.0-31.0); Mean Corpuscular Volume 90.9 fL (80.0-94.0); Mean Platelet Volume 11.8 fL (7.4-10.4); Platelet Count 130 10^3/uL (130-400); Red Blood Cell Count 3.86 10^6/uL (4.70-6.10); Red Cell Dist. Width 13.7 % (11.5-14.5); White Blood Cell Count 8.6 10^3/uL (4.8-10.8)
[2023-09-21] MEDS: LIPITOR 40 MG PO (08:59)
[2023-09-21] MEDS: LOPRESSOR 25 MG PO (08:59)
[2023-09-21] MEDS: ELIQUIS 5 MG PO ×2 (08:59→19:49)
[2023-09-21] MEDS: ASPIR LOW (ENTERIC COATED) 81 MG PO (08:59)
[2023-09-21 09:01] LABS: Blood Urea Nitrogen 24 mg/dl (9-20); Carbon Dioxide 23 mmol/L (22-30); Chloride 106 mmol/L (98-107); Estimated Creatinine Clearance 63 ml/min; Glucose 125 mg/dl (70-99); Magnesium 2.1 mg/dl (1.6-2.3); Potassium 3.8 mmol/L (3.5-5.1); Sodium 134 mmol/L (135-145); eGFR > 60.00
[2023-09-21 11:30] VITALS: BP 157/96
--- NOTE | 2023-09-21 13:44 | W.PN.CARDCBS ---
Addendum entered and electronically signed by Deanna Judge PA-C 09/21/23 14:45:
Records reviewed from [facility] cardiology. Patient last seen in office 11/24/2022. He is noted to have persistent A-fib, hypertension, hyperlipidemia, type 2 diabetes. His stroke was in 2019 and he was diagnosed with atrial fibrillation in the setting
of this. He received tPA at that time. Later that year he was admitted with seizure, however imaging without new CVA it appears he has been rate controlled by review of records. Last echocardiogram from 04/2020 with EF 55 to 60%, mild MR, mild TR
Addendum entered and electronically signed by Yariel Davis MD 09/21/23 14:13:
I saw and examined the patient.
The Desizing Machine Operator's note was reviewed and I agree with the note.
Comment:
GEN: No distress, awake,
HEENT: supple, anicteric, mmm
LUNGS: CTA, no wheezes/rales
CV: Irreg, S1/S2, 1/6 syst LSB, no gallop
ABD: soft, BS+, NT/ND
EXT: No edema
NEURO: Gross non-focal
SKIN: No rash
Plan:
His ventricular rates remain elevated with frequent episodes of PVCs/aberrancy
Increase metoprolol to 50 mg p.o. twice daily.
Continue treatment for UTI/E. coli sepsis. Still with fever.
Abnormal troponin is non-DC troponin elevation.
Original Note:
Today's Communication / Plan
-
increase lopressor. follow on tele
Impression / Plan
-
Primary marketing traffic manager: Dr. Ward
Assessment:
Presentation with lethargy, weakness
UTI/E.coli sepsis
Leukocytosis
JANEY
Elevated lactic acid
Presumed TME
elevated troponin, suspected nonMI trop elevation
dementia
history of CVA with residual L hemiparesis
atrial fibrillation, unknown chronicity
chronic OAC with eliquis
chronic RBBB
seizure disorder
HTN
HLD
ECHO 09/19/23: EF 55 to 60%, mild AR, trace TR, PAP 20 mmHg
Plan:
-on review of tele, HRs trends around 100 bpm and with frequent PVCs at times in pattern of bigeminy. K/mag stable. will increase lopressor to 50mg BID. BPs stable
-continue eliquis
-trop peaked at 0.073. no CP. suspected nonMI trop elevation. continue OP asa, statin
-urine and blood culture grew out e.coli. continue treatment of UTI/sepsis per primary service
Progress Note - Yeast Culture Operator
Subjective
Date of Service: September 21, 2023
no issues overnight noted
Objective
Labs:
09/21/23 06:51
09/21/23 06:51
Labs
Hgb 11.8 g/dL (13.0-18.0) L 09/21/23 06:51
Hct 35.1 % (39.0-52.0) L 09/21/23 06:51
Plt Count 130 10^3/uL (130-400) 09/21/23 06:51
Sodium 134 mmol/L (135-145) L 09/21/23 06:51
Potassium 3.8 mmol/L (3.5-5.1) 09/21/23 06:51
BUN 24 mg/dl (9-20) H 09/21/23 06:51
Creatinine 1.1 mg/dL (0.7-1.3) 09/21/23 06:51
Glucose 125 mg/dl (70-99) H 09/21/23 06:51
Troponins
09/19/23 09/19/23 09/19/23
10:19 13:51 19:55
Troponin I 0.048 H* 0.073 H* D 0.072 H*
Vital Signs and I&O:
Vital Signs
Temp Pulse Resp BP Pulse Ox
98.4 F 103 20 157/96 96
09/21/23 11:30 09/21/23 11:30 09/21/23 11:30 09/21/23 11:30 09/21/23 11:30
Vital Signs
Temp Pulse Resp BP Pulse Ox
98.4 F 103 20 157/96 96
09/21/23 11:30 09/21/23 11:30 09/21/23 11:30 09/21/23 11:30 09/21/23 11:30
Intake & Output
09/19/23 09/20/23 09/21/23 09/22/23
07:59 07:59 07:59 07:59
Intake Total 540 / 540
Balance 540 / 540
--- NOTE | 2023-09-21 14:25 | W.PN.HOSP.TC ---
Addendum entered and electronically signed by Irvin Turner MD 09/21/23 15:47:
Add to diagnosis list:
Lactic acidosis

Patient continues to spike fever. CT abdomen pelvis without iv/oral contrast ordered. (pt will not take oral contrast)
Original Note:
Today's Communication/Plan
-
discharge planning for rehab
Assessment / Plan
Assessment / Plan
UTI/Sepsis
Ecoli UTI/Bacteremia
-UA showing significant pyuria/bacteriuria
-Urine culture blood culture growing ecoli -pansensitive antibiotic
-Maintain on empiric Rocephin, will transition to oral Keflex therapy at discharge to finish total of 14 days of antibiotic therapy
-Repeat blood culture ordered
-Monitor T curve.
Afib/rvr
-started on oral metoprolol as tolerating diet
-cardio help appreciated
TME from sepsis - improved
Dementia without behavioral problems
-May require nighttime antipsychotics/mitts if any signs of sundowning
Right MCA area CVA
h/o seizure
- maintain on keppra
- maintain on asa/statin
Generalized weakness
-PT recommended short rehab stay, CM informed
Full code
09/20 21 family updated.
Anticipated Discharge: Within 24 hours
Subjective/Interval History
-
Date of Service: September 21, 2023
Sitting comfortably in chair
Patient communicating, stated of having poor appetite
Heart rate better controlled
Mild fever episode overnight
Objective Data
-
Labs:
Laboratory Results
09/21/23
06:51
WBC 8.6
Hgb 11.8 L
Hct 35.1 L
Plt Count 130
Sodium 134 L
Potassium 3.8
Chloride 106
Carbon Dioxide 23
BUN 24 H
Creatinine 1.1
Glucose 125 H
Calcium 8.0 L
Vital Signs:
Vital Signs
Temp Pulse Resp BP Pulse Ox
101.7 F H 103 20 157/96 96
09/21/23 14:09 09/21/23 11:30 09/21/23 11:30 09/21/23 11:30 09/21/23 11:30
I&O
09/20/23 09/21/23 09/22/23
06:59 06:59 06:59
Intake Total 540 / 540
Balance 540 / 540
Review of Systems
-
Unable to obtain full review of systems at this time due to: Dementia
Physical Exam
-
General: No Apparent Distress and Comfortable
HEENT: Negative Oxygen
Respiratory: Clear to Auscultation
Cardiac: Regular Rhythm and S1/S2; Negative Murmur or Rub
Neuro: Awake, Alert, No Motor Deficits and Nonfocal/Grossly Intact
Psych: Calm
[2023-09-21 15:40] VITALS: BP 152/103
[2023-09-21] MEDS: STERILE WATER FOR INJECTION 10 ML IV (16:49)
[2023-09-21] MEDS: ROCEPHIN 1000 MG IV (16:49)
[2023-09-21] MEDS: DESYREL 100 MG PO (17:02)
--- NOTE | 2023-09-21 17:05 | CM ---
CM following re: d/c planning
Chart reviewed
CM spoke with the patient's daughter via phone; IA completed
Pt is dx with dementia and unable to answer questions asked
Pt resides with his spouse in their daughter's 2SH with 1STE and 20 steps to bed/bath
CRITICAL CARE RN patient is assisted with adls & mobility
Pt has the following DME: a bsc, r/w, spc, w/c & bed alarm, Pt has been to SNF however the daughter didn't recall the names and had also had VN and doesn't recall the agency
Pt has prescription coverage and rx's are filled at [facility] in [place]
Pt PCP-Dr. Bishnu Gonzalez
Post d/c recommendation is for SNF; per the patient's daughter referrals were placed to both [facility] & [facility]
CM will continue to follow patient progress and assist with d/c to SNF pending bed availability
PLAN; d/c to SNF pending bed availability
[2023-09-21 19:27] VITALS: BP 159/86
[2023-09-21] MEDS: LOPRESSOR 50 MG PO (19:49)
[2023-09-21 23:54] VITALS: BP 154/80
[2023-09-22 03:43] VITALS: BP 165/98
[2023-09-22] MEDS: TYLENOL 650 MG PO ×2 (03:50→23:26)
[2023-09-22] MEDS: KEPPRA 500 MG PO ×2 (03:50→17:24)
[2023-09-22 04:30] VITALS: BMI 33.4
[2023-09-22 07:38] LABS: Hematocrit 35.7 % (39.0-52.0); Mean Corp Hgb Conc. 33.6 g/dL (33.0-37.0); Mean Corpuscular Hgb 29.7 pg (27.0-31.0); Mean Corpuscular Volume 88.4 fL (80.0-94.0); Mean Platelet Volume 10.9 fL (7.4-10.4); Platelet Count 144 10^3/uL (130-400); Red Blood Cell Count 4.04 10^6/uL (4.70-6.10); Red Cell Dist. Width 13.8 % (11.5-14.5); White Blood Cell Count 6.7 10^3/uL (4.8-10.8)
[2023-09-22 08:19] LABS: Blood Urea Nitrogen 24 mg/dl (9-20); Calcium 8.2 mg/dl (8.4-10.2); Carbon Dioxide 24 mmol/L (22-30); Chloride 104 mmol/L (98-107); Estimated Creatinine Clearance 70 ml/min; Glucose 125 mg/dl (70-99); Potassium 3.7 mmol/L (3.5-5.1); Sodium 137 mmol/L (135-145); eGFR > 60.00
[2023-09-22] MEDS: LIPITOR 40 MG PO (09:19)
[2023-09-22] MEDS: ELIQUIS PO (09:19)
[2023-09-22] MEDS: ASPIR LOW (ENTERIC COATED) 81 MG PO (09:19)
[2023-09-22] MEDS: LOPRESSOR 50 MG PO (09:19)
--- NOTE | 2023-09-22 09:39 | W.PN.HOSP.TC ---
Today's Communication/Plan
-
see note
f/u repeat blood cs report
hold eliquis
Assessment / Plan
Assessment / Plan
Ct a/p
1. 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
2. Multiple large stones are seen within the intrarenal collecting system and pelvis of the right kidney, measuring up to 2.3 cm in diameter.
3. Moderate hydronephrosis of the right kidney, transition point at the right ureteropelvic junction. No obstructing stone is appreciated. UPJ obstruction may be congenital or functional.
4. There is thickening and stranding adjacent to the right side of the urothelium, suggestive of an ascending urinary tract infection.
5. Suspected right basilar subsegmental atelectasis, with trace right pleural fluid.
6. Moderate coronary arterial calcification. Please correlate with symptoms of and risk factors for coronary artery disease, with further workup as clinically appropriate.

UTI/Sepsis
Ecoli UTI/Bacteremia
-UA showing significant pyuria/bacteriuria
-Urine culture blood culture growing ecoli -pansensitive antibiotic
-Maintain on empiric Rocephin, will transition to oral Keflex therapy at discharge to finish total of 14 days of antibiotic therapy
-Repeat blood culture ordered
Right ectopic kidney
Right hydronephrosis with large renal pelvic stone
-Ct a/p done due to nonresolution of fever despite appropriate abx therapy
-Incidentally found to having large right ectopic kidneys, hydronephrosis large stone in renal pelvis
-Urology evaluated and considering for possible need of nephrostomy tube placement
-Currently on Eliquis and held for need of nephrostomy tube, discussed with family
Afib/rvr - Improved
-started on oral metoprolol as tolerating diet
-cardio help appreciated
TME from sepsis - improved
Dementia without behavioral problems
-May require nighttime antipsychotics/mitts if any signs of sundowning
Right MCA area CVA
h/o seizure
- maintain on keppra
- maintain on asa/statin
Generalized weakness
-PT recommended short rehab stay, CM informed
Full code
Care plan discussed with urology
09/20 family updated.
Anticipated Discharge: > 48 hours
Subjective/Interval History
-
Date of Service: September 22, 2023
Resting comfortably in bed
No acute issues reported overnight
Remains febrile
Objective Data
-
Labs:
Laboratory Results
09/22/23
07:18
WBC 6.7
Hgb 12.0 L
Hct 35.7 L
Plt Count 144
Sodium 137
Potassium 3.7
Chloride 104
Carbon Dioxide 24
BUN 24 H
Creatinine 1.0
Glucose 125 H
Calcium 8.2 L
Vital Signs:
Vital Signs
Temp Pulse Resp BP Pulse Ox
97.5 F 69 20 140/78 97
09/22/23 07:55 09/22/23 09:19 09/22/23 07:55 09/22/23 09:19 09/22/23 07:55
I&O
09/21/23 09/22/23 09/23/23
06:59 06:59 06:59
Intake Total 540 / 540 480 / 480
Balance 540 / 540 480 / 480
Review of Systems
-
Unable to obtain full review of systems at this time due to: Dementia
Physical Exam
-
General: No Apparent Distress and Comfortable
HEENT: Negative Oxygen
Respiratory: Clear to Auscultation
Cardiac: Regular Rhythm and S1/S2; Negative Murmur or Rub
Neuro: Awake, Alert, No Motor Deficits and Nonfocal/Grossly Intact
Psych: Calm
[2023-09-22 11:55] VITALS: BP 157/96
[2023-09-22 12:20] VITALS: BP 141/88; PULSE 57; O2SAT 96
--- NOTE | 2023-09-22 14:21 | W.PN.CARDCBS ---
Addendum entered and electronically signed by Wilman Guevara MD 09/22/23 17:41:
Stop aspirin
Addendum entered and electronically signed by Wilman Guevara MD 09/22/23 17:39:
Will start heparin a.m.
Addendum entered and electronically signed by Wilman Guevara MD 09/22/23 17:36:
No obvious complaints, about to dinner, can speak but cognitively impaired
allergies: are none
Outpatient medications: Eliquis, aspirin, atorvastatin, Keppra, metoprolol tartrate 25 twice daily, trazodone
Current medications: Aspirin 81 mg a day, atorvastatin 40 mg a day, apixaban 5 twice daily, levetiracetam, trazodone, ceftriaxone, metoprolol tartrate 75 twice daily, had been 25 twice daily as outpatient
PMH/PSH/SH/FH: Reviewed
Review of systems negative except as above
164/107, pulse 74, respiratory rate 18, afebrile
Head neck exam unremarkable, few crackles right base, irregular rate and rhythm, 100, abdomen benign extremities trace edema pulses okay, neuro grossly nonfocal
Hemoglobin is 12, platelets are normal, BUN and creatinine are 24 and 1.0, sodium is 137, peak troponin was 0.07
Assessment:
UTI/E.coli sepsis, ectopic kidney right with stones and hydronephrosis
Leukocytosis
JANEY
Presumed TME
elevated troponin, suspected non-ischemic myocardial injury
dementia
history of CVA with residual L hemiparesis
Permanent atrial fibrillation
chronic OAC with eliquis
chronic RBBB
seizure disorder
HTN
HLD
type 2 DM
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
ECHO 09/19/23:�EF 55 to 60%, mild AR, trace TR, PAP 20 mmHg
Echo 05/19/2022: EF 55 to 60%, mild MR, mild TR
Plan:
Overall stable from cardiac standpoint despite A-fib and detectable troponin.
Non-IL troponin elevation likely related to physiologic stress of urosepsis.
Eliquis on hold, to start heparin ventricular response still slightly rapid, blood pressure okay,
Will increase metoprolol to 100 mg twice daily
Original Note:
Today's Communication / Plan
-
Increase Lopressor to 75 mg BID
Eliquis on hold for nephrostomy tube placement
Heparin gtt while off Eliquis
Replete K+
Impression / Plan
-
Primary cd technician: Dr. Ward
Assessment:
Presentation 09/19/2023 with lethargy, weakness
UTI/E.coli sepsis
Leukocytosis
JANEY
Elevated lactic acid
Presumed TME
Ectopic right kidney w/ renal pelvic stone on CT a/p 09/21/2023
elevated troponin, suspected non-ischemic myocardial injury
dementia
history of CVA with residual L hemiparesis
Permanent atrial fibrillation
chronic OAC with eliquis
chronic RBBB
seizure disorder
HTN
HLD
type 2 DM
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
Seizure disorder
ECHO 09/19/23: EF 55 to 60%, mild AR, trace TR, PAP 20 mmHg
Echo 05/19/2022: EF 55 to 60%, mild MR, mild TR
Plan:
-Presented 09/19/2023 with lethargy, weakness and found to have UTI/Sepsis with Ecoli Bacteremia. Continue Rocephin per primary service
-Underwent CT of abdomen and pelvis secondary to ongoing fever with appropriate antibiotic therapy and was found to have Ectopic right kidney w/ renal pelvic stone w/ hydronephrosis with large stone in renal pelvis on CT A/P on 09/22/23 Urology
consulted and considering placement of nephrostomy tube. Would need to hold Eliquis. Would start Heparin gtt given prior stroke while off Eliquis
-on review of tele, HRs trends around 100 bpm and with frequent PVCs at times in pattern of bigeminy. K/mag stable. BP will allow for uptitration of beta-chidi. Will increase Lopressor to 75 mg BID.
-Eliquis on hold pending nephrostomy tube placement
-trop peaked at 0.073. no CP. suspected non-ischemic myocardial injury. Continue OP ASA, statin
-Daughter also expressing interest in transitioning cardiology care to [facility] upon d/c
Talked w/ daughter Amina and reviewed above plan. She agrees to heparin gtt. Daughter also expressing interest in transitioning cardiology care to [facility] upon d/c
Progress Note - Software Engineer Intern
Subjective
Date of Service: September 22, 2023
Patient seen and examined. Reports that he is feeling well. Denies chest pain, shortness of breath or palpitations.
Objective
Labs:
09/22/23 07:18
09/22/23 07:18
Labs
Hgb 12.0 g/dL (13.0-18.0) L 09/22/23 07:18
Hct 35.7 % (39.0-52.0) L 09/22/23 07:18
Plt Count 144 10^3/uL (130-400) 09/22/23 07:18
Sodium 137 mmol/L (135-145) 09/22/23 07:18
Potassium 3.7 mmol/L (3.5-5.1) 09/22/23 07:18
BUN 24 mg/dl (9-20) H 09/22/23 07:18
Creatinine 1.0 mg/dL (0.7-1.3) 09/22/23 07:18
Glucose 125 mg/dl (70-99) H 09/22/23 07:18
Troponins
09/19/23 09/19/23
13:51 19:55
Troponin I 0.073 H* D 0.072 H*
Vital Signs and I&O:
Vital Signs
Temp Pulse Resp BP Pulse Ox
97.6 F 68 18 157/96 97
02/23/24 11:55 09/22/23 11:55 09/22/23 11:55 09/22/23 11:55 09/22/23 11:55
Vital Signs
Temp Pulse Resp BP Pulse Ox
97.6 F 68 18 157/96 97
09/22/23 11:55 09/22/23 11:55 09/22/23 11:55 09/22/23 11:55 09/22/23 11:55
Intake & Output
09/20/23 09/21/23 09/22/23 09/23/23
06:59 06:59 06:59 06:59
Intake Total 540 / 540 480 / 480
Balance 540 / 540 480 / 480
Physical Exam
Physical Exam
GEN: No distress, awake, Ox3
HEENT: supple, anicteric, mmm
LUNGS: CTA, no wheezes/rales
CV: Irreg irreg, S1/S2, 1/6 syst murmur, no rubs or gallops
ABD: soft, BS+, NT/ND
EXT: No edema, clubbing or cyanosis
NEURO: Gross non-focal
SKIN: No rash, warm, dry
[2023-09-22] MEDS: KCL 40 MEQ PO (14:50)
[2023-09-22 15:25] VITALS: BP 164/107
--- NOTE | 2023-09-22 16:49 | CM ---
CM following re: d/c planning
Chart reviewed
Pt will likely remain in the hospital through the weekend
Per PT eval. post d/c recommendation is for SNF
After speaking with the patient's daughter referrals were placed to [facility] & [facility] no responses regarding availability have been determined
CM will continue to monitor patient's progress and assist with needs at d/c as indicated
PLAN; d/c to SNF
[2023-09-22] MEDS: DESYREL 100 MG PO (17:24)
[2023-09-22] MEDS: ROCEPHIN 1000 MG IV (17:25)
[2023-09-22] MEDS: STERILE WATER FOR INJECTION 10 ML IV (17:25)
[2023-09-22 19:28] VITALS: BP 175/96
--- NOTE | 2023-09-22 19:49 | CONS.URO ---
Consultation
-
Performing Provider: Peffer
Reason for Consultation: Hydronephrosis, fever
Medical History
History of Present Illness
78M with no known prior urologic history
Admitted with altered mental status and found to have acute UTI with sepsis
After treatment with abx he had persistent fever over the past few days
CTAP was obtained which showed malrotated R kidney, hydronephrosis, multiple large stones
Urology consulted for management
Past Medical History
Past Medical History: Other (essential hypertension, hyperlipidemia, history of CVA, dementia, A-fib, history of seizure)
Past Surgical History: Appendectomy
Social History
Tobacco: Non-smoker
Alcohol: None
Drug: None
Family History
Family History: Reviewed & Not Pertinent
Allergies/Home Medications
Allergies
Allergy/AdvReac Type Severity Reaction Status Date / Time
No Known Allergies Allergy Verified 10/16/20 11:31
Home Medications
Medication Instructions Recorded Confirmed Type
apixaban 5 mg tablet (Eliquis) 5 mg PO BID Blood Clot 09/19/23 09/19/23 History
Prevention/Tx
aspirin 81 mg tablet,delayed 81 mg PO DAILY Blood Clot 09/19/23 09/19/23 History
release Prevention/Tx
atorvastatin 40 mg tablet 40 mg PO DAILY High Cholesterol 09/19/23 09/19/23 History
levetiracetam 500 mg tablet 500 mg PO Q12 Seizures 09/19/23 09/19/23 History
metoprolol tartrate 25 mg tablet 25 mg PO BID Blood Pressure 09/19/23 09/19/23 History
trazodone 100 mg tablet 100 mg PO QPM sleep 09/19/23 09/19/23 History
Physical Exam
Vital Signs
Vital Signs
Temp Pulse Resp BP Pulse Ox
98.2 F 116 16 175/96 96
09/22/23 19:28 09/22/23 19:28 09/22/23 19:28 09/22/23 19:28 09/22/23 19:28
Lab / Testing Results
Laboratory Results
09/22/23 07:18
09/22/23 07:18
Physical Exam
General: Well Developed, Well Nourished and No Apparent Distress
HEENT: Normocephalic
Respiratory: Clear and Non Labored Respirations
GI: Soft, Non Tender and Non Distended
Genito-urinary: No Costovertebral Tend
Skin: Warm and Dry
Psych: Apparent Dementia
Assessment / Plan
-
78M with septic UTI, treated with abx and having persistent fevers
CT showing malrotated ectopic pelvic R kidney with hydronephrosis, stones, and evidence of ascending UTI
- NPO at [facility] for OR tomorrow - cystoscopy, R retrograde pyelogram, R ureteral stent placement
- This will likely be a better tolerated drainage strategy than nephrostomy tube given patient's dementia and risk of pulling tubes
- Continue IV antibiotics
- Hold Eliquis - okay to start heparin after procedure
- Eventually will need more definitive management of chronic ureteral obstruction and stones. In his case the best management strategy may be R nephrectomy
Data Reviewed
-
CT Scan: Image personally visualized and interpreted
Lab Data: Labs Reviewed
[2023-09-22] MEDS: LOPRESSOR 100 MG PO (19:54)
[2023-09-22 22:59] VITALS: BP 161/75
[2023-09-23] VITALS (11 sets, daily range): BP systolic 97–171; BP diastolic 63–113; BMI 33.0
[2023-09-23] MEDS: KEPPRA 500 MG PO ×2 (04:11→17:06)
[2023-09-23 07:27] LABS: Hematocrit 38.2 % (39.0-52.0); Hemoglobin 13.2 g/dL (13.0-18.0); Mean Corp Hgb Conc. 34.6 g/dL (33.0-37.0); Mean Corpuscular Hgb 30.7 pg (27.0-31.0); Mean Corpuscular Volume 88.8 fL (80.0-94.0); Mean Platelet Volume 10.9 fL (7.4-10.4); Platelet Count 148 10^3/uL (130-400); Red Cell Dist. Width 13.7 % (11.5-14.5); White Blood Cell Count 9.1 10^3/uL (4.8-10.8)
[2023-09-23] MEDS: LIPITOR 40 MG PO (07:50)
[2023-09-23] MEDS: LOPRESSOR 100 MG PO ×2 (07:50→21:22)
[2023-09-23 07:52] LABS: Blood Urea Nitrogen 21 mg/dl (9-20); Calcium 8.1 mg/dl (8.4-10.2); Carbon Dioxide 24 mmol/L (22-30); Chloride 107 mmol/L (98-107); Estimated Creatinine Clearance 87 ml/min; Glucose 111 mg/dl (70-99); Potassium 3.9 mmol/L (3.5-5.1); Sodium 137 mmol/L (135-145); eGFR > 60.00
--- NOTE | 2023-09-23 12:38 | PTCARENOTE ---
Pt's daughter called for an update. She also wanted to speak with MD, Gave her number to him.
--- NOTE | 2023-09-23 12:42 | W.PN.HOSP.TC ---
Today's Communication/Plan
-
for OR today
resume Eliquis tomorrow after uro clearance
will adjust BP meds further as needed
Assessment / Plan
Assessment / Plan
Ct a/p
1. 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
2. Multiple large stones are seen within the intrarenal collecting system and pelvis of the right kidney, measuring up to 2.3 cm in diameter.
3. Moderate hydronephrosis of the right kidney, transition point at the right ureteropelvic junction. No obstructing stone is appreciated. UPJ obstruction may be congenital or functional.
4. There is thickening and stranding adjacent to the right side of the urothelium, suggestive of an ascending urinary tract infection.
5. Suspected right basilar subsegmental atelectasis, with trace right pleural fluid.
6. Moderate coronary arterial calcification. Please correlate with symptoms of and risk factors for coronary artery disease, with further workup as clinically appropriate.

UTI/Sepsis
Ecoli UTI/Bacteremia
-UA showing significant pyuria/bacteriuria
-Urine culture blood culture growing ecoli -pansensitive antibiotic
-Maintain on empiric Rocephin, will transition to oral Keflex therapy at discharge to finish total of 14 days of antibiotic therapy
-Repeat blood culture neg so far
Right ectopic kidney
Right hydronephrosis with large renal pelvic stone
-Ct a/p done due to nonresolution of fever despite appropriate abx therapy
-Incidentally found to having large right ectopic kidneys, hydronephrosis large stone in renal pelvis
-Urology decided take patient to the OR for cystoscopy/stent placement
-Eliquis on hold
Afib/rvr - Improved
-started on oral metoprolol as tolerating diet
-Discussed with cardio yesterday and initially plan was to start patient on heparin drip as patient likely procedure was on Monday. Although with changing timing patient can possibly be resumed back on Eliquis from tomorrow morning after OR
procedure today
TME from sepsis - improved
Dementia without behavioral problems
-May require nighttime antipsychotics/mitts if any signs of
Right MCA area CVA
h/o seizure
- maintain on keppra
- maintain on asa/statin
Essential HTN - uncontrolled
- dose of metoprolol increased by cards
- PRN hydralazine added
- will increase HTN meds if BP not better.
Generalized weakness
-PT recommended short rehab stay, CM informed
Full code
Care plan discussed with urology
09/20 family updated.
Anticipated Discharge: 24 - 48 hours
Subjective/Interval History
-
Date of Service: September 23, 2023
Resting comfortably in bed
Blood pressure uncontrolled
Mild episode of fever overnight
No other issues reported
Objective Data
-
Labs:
Laboratory Results
09/23/23
07:07
WBC 9.1
Hgb 13.2
Hct 38.2 L
Plt Count 148
Sodium 137
Potassium 3.9
Chloride 107
Carbon Dioxide 24
BUN 21 H
Creatinine 0.8
Glucose 111 H
Calcium 8.1 L
Vital Signs:
Vital Signs
Temp Pulse Resp BP Pulse Ox
97.9 F 94 20 171/113 97
09/23/23 11:01 09/23/23 11:01 09/23/23 11:01 09/23/23 11:01 09/23/23 11:01
I&O
09/22/23 09/23/23 09/24/23
06:59 06:59 06:59
Intake Total 480 / 480 480 / 480
Balance 480 / 480 480 / 480
Review of Systems
-
Unable to obtain full review of systems at this time due to: Dementia
Physical Exam
-
General: No Apparent Distress and Comfortable
HEENT: Negative Oxygen
Respiratory: Clear to Auscultation
Cardiac: Regular Rhythm and S1/S2; Negative Murmur or Rub
Neuro: Awake, Alert, No Motor Deficits and Nonfocal/Grossly Intact
Psych: Calm
--- NOTE | 2023-09-23 13:21 | W.IMMPOSTOP ---
Surgical Immed Post Op Note
-
Primary Surgeon: Matheusfer
Assisting Surgeon: -
Pre-op Diagnosis: UTI, pelvic kidney R hydronephrosis
Post-op Diagnosis: same
Procedure Performed: cystoscopy, R retrograde pyelogram
Anesthesia Type: general
Specimen / Cultures: none
Estimated Blood Loss: minimal
Complications: none
Operative Findings: some purulent urine in R kidney, stent in good position, no clear obstruction but ureter generally tortuous and narrow
--- NOTE | 2023-09-23 14:06 | PTCARENOTE ---
Pt back on floor from PACU, Procedure went well. pt is A+Ox3, confused, forgetful, laying in bed on medsitter. vitals obtained and pt in no distress.
--- NOTE | 2023-09-23 14:49 | W.PN.CARDCBS ---
Today's Communication / Plan
-
Remains rate controlled atrial fibrillation on increase Lopressor 75 mg twice daily.
Resume IV heparin once okay with urology. Eventually resume Eliquis when no further procedures planned and patient tolerating anticoagulation.
Recent echo reviewed, EF preserved
Continue medical therapy for non-FL troponin.
Patient underwent right ureteral stent placement September 23, 2023 for right hydronephrosis secondary to right malrotated kidney
Impression / Plan
-
Primary cup trimming machine operator: Dr. Ward
Impression:
Presentation 09/19/2023 with lethargy, weakness
UTI/E.coli sepsis
Leukocytosis
JANEY
Right hydronephrosis secondary to malrotated right kidney status post right ureteral stent placement September 23, 2023
Elevated lactic acid
Presumed TME
Ectopic right kidney w/ renal pelvic stone on CT a/p 09/21/2023
elevated troponin, suspected non-ischemic myocardial injury
dementia
history of CVA with residual L hemiparesis
Permanent atrial fibrillation
chronic OAC with eliquis
chronic RBBB
seizure disorder
HTN
HLD
type 2 DM
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
Seizure disorder
ECHO 09/19/23: EF 55 to 60%, mild AR, trace TR, PAP 20 mmHg
Echo 05/19/2022: EF 55 to 60%, mild MR, mild TR
Plan:
HPI: Presented 09/19/2023 with lethargy, weakness and found to have UTI/Sepsis with Ecoli Bacteremia.
Remains rate controlled atrial fibrillation on increase Lopressor 75 mg twice daily.
Resume IV heparin once okay with urology. Eventually resume Eliquis when no further procedures planned and patient tolerating anticoagulation.
Recent echo reviewed, EF preserved
Continue medical therapy for non-FL troponin.
Patient underwent right ureteral stent placement September 23, 2023 for right hydronephrosis secondary to right malrotated kidney
Continue antibiotics as per primary service.
Daughter expressed interest in transitioning cardiology care to [facility] cardiology upon d/c
Progress Note - Toggler
Subjective
Date of Service: September 23, 2023
Patient seen and examined. No chest pain
Objective
Labs:
09/23/23 07:07
09/23/23 07:07
Labs
Hgb 13.2 g/dL (13.0-18.0) 09/23/23 07:07
Hct 38.2 % (39.0-52.0) L 09/23/23 07:07
Plt Count 148 10^3/uL (130-400) 09/23/23 07:07
Sodium 137 mmol/L (135-145) 09/23/23 07:07
Potassium 3.9 mmol/L (3.5-5.1) 09/23/23 07:07
BUN 21 mg/dl (9-20) H 09/23/23 07:07
Creatinine 0.8 mg/dL (0.7-1.3) 09/23/23 07:07
Glucose 111 mg/dl (70-99) H 09/23/23 07:07
Vital Signs and I&O:
Vital Signs
Temp Pulse Resp BP Pulse Ox
97.4 F 91 16 147/96 98
09/23/23 13:07 09/23/23 14:04 09/23/23 13:15 09/23/23 14:04 09/23/23 14:04
Vital Signs
Temp Pulse Resp BP Pulse Ox
97.4 F 91 16 147/96 98
09/23/23 13:07 09/23/23 14:04 09/23/23 13:15 09/23/23 14:04 09/23/23 14:04
Intake & Output
09/21/23 09/22/23 09/23/23 09/24/23
06:59 06:59 06:59 06:59
Intake Total 540 / 540 480 / 480 480 / 480
Balance 540 / 540 480 / 480 480 / 480
Physical Exam
Physical Exam
General: No acute distress, awake
Neck: Negative JVD
Heart: Irregularly irregular, Negative S3 positive S1/S2, Negative S4, No murmur
Lungs: CTA b/l, negative wheezes/rales/rhonchi
Abd: Positive BS, NT/ND, neg rebound/rigidity/guarding
Ext: Negative cyanosis/clubbing/edema
Neuro: nonfocal
--- NOTE | 2023-09-23 16:08 | PTCARENOTE ---
Per Urology the pt is cleared to start heparin. Advised Cardiology and waiting for the order.
--- NOTE | 2023-09-23 16:16 | W.PN.UPDATE ---
Update Note
Progress Note Update
Okay to start heparin drip
If no significant hematuria can likely resume normal OAC before discharge
[2023-09-23] MEDS: HEPARIN 25000 UNITS/250 ML IV (16:53)
[2023-09-23 16:54] LABS: Hematocrit 39.5 % (39.0-52.0); Hemoglobin 13.3 g/dL (13.0-18.0); Mean Corp Hgb Conc. 33.7 g/dL (33.0-37.0); Mean Corpuscular Hgb 30.4 pg (27.0-31.0); Mean Corpuscular Volume 90.2 fL (80.0-94.0); Mean Platelet Volume 11.5 fL (7.4-10.4); Platelet Count 178 10^3/uL (130-400); Red Blood Cell Count 4.38 10^6/uL (4.70-6.10); Red Cell Dist. Width 13.7 % (11.5-14.5); White Blood Cell Count 10.2 10^3/uL (4.8-10.8)
[2023-09-23 17:00] LABS: APTT 27.4 Sec (23.4-35.0)
[2023-09-23] MEDS: DESYREL 100 MG PO (17:06)
[2023-09-23] MEDS: STERILE WATER FOR INJECTION 10 ML IV (17:07)
[2023-09-23] MEDS: ROCEPHIN 1000 MG IV (17:07)
--- NOTE | 2023-09-23 17:29 | PTCARENOTE ---
Heparin gtt started on pt. Per Urology ok for heparin and as long as no bleeding he can restart his eliquis tomorrow. I advise cardiology MD, heparin ordered and started, ptt ordered for 2300.
[2023-09-23 19:11] LABS: Glucose - Point of Care 175 mg/dl (70-99)
[2023-09-24 00:09] LABS: APTT 42.3 Sec (23.4-35.0)
[2023-09-24 04:03] VITALS: BP 156/100
[2023-09-24] MEDS: KEPPRA 500 MG PO ×2 (04:18→17:17)
[2023-09-24 04:44] VITALS: BMI 32.2
[2023-09-24 07:16] VITALS: BP 160/112
[2023-09-24 07:34] LABS: Hematocrit 39.1 % (39.0-52.0); Hemoglobin 13.5 g/dL (13.0-18.0); Mean Corp Hgb Conc. 34.5 g/dL (33.0-37.0); Mean Corpuscular Hgb 30.2 pg (27.0-31.0); Mean Corpuscular Volume 87.5 fL (80.0-94.0); Mean Platelet Volume 11.4 fL (7.4-10.4); Platelet Count 200 10^3/uL (130-400); Red Blood Cell Count 4.47 10^6/uL (4.70-6.10); Red Cell Dist. Width 13.4 % (11.5-14.5); White Blood Cell Count 11.2 10^3/uL (4.8-10.8)
[2023-09-24 07:38] LABS: APTT 58.3 Sec (23.4-35.0)
[2023-09-24] MEDS: LOPRESSOR 100 MG PO ×2 (07:58→20:40)
[2023-09-24] MEDS: LIPITOR 40 MG PO (07:58)
[2023-09-24 08:33] LABS: Blood Urea Nitrogen 27 mg/dl (9-20); Calcium 8.7 mg/dl (8.4-10.2); Carbon Dioxide 26 mmol/L (22-30); Chloride 102 mmol/L (98-107); Estimated Creatinine Clearance 86 ml/min; Glucose 143 mg/dl (70-99); Potassium 4.2 mmol/L (3.5-5.1); Sodium 137 mmol/L (135-145); eGFR > 60.00
[2023-09-24] MEDS: PROCARDIA XL (EXTENDED RELEASE) 30 MG PO ×2 (10:07→20:40)
--- NOTE | 2023-09-24 11:09 | W.PN.HOSP.TC ---
Today's Communication/Plan
-
see note
Assessment / Plan
Assessment / Plan
Ct a/p
1. 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
2. Multiple large stones are seen within the intrarenal collecting system and pelvis of the right kidney, measuring up to 2.3 cm in diameter.
3. Moderate hydronephrosis of the right kidney, transition point at the right ureteropelvic junction. No obstructing stone is appreciated. UPJ obstruction may be congenital or functional.
4. There is thickening and stranding adjacent to the right side of the urothelium, suggestive of an ascending urinary tract infection.
5. Suspected right basilar subsegmental atelectasis, with trace right pleural fluid.
6. Moderate coronary arterial calcification. Please correlate with symptoms of and risk factors for coronary artery disease, with further workup as clinically appropriate.

UTI/Sepsis
Ecoli UTI/Bacteremia
-UA showing significant pyuria/bacteriuria
-Urine culture blood culture growing ecoli -pansensitive antibiotic
-Repeat blood culture neg so far
-Continue Rocephin for now
Right ectopic kidney
Right hydronephrosis with large renal pelvic stone
-Ct a/p done due to nonresolution of fever despite appropriate abx therapy
-Incidentally found to having large right ectopic kidneys, hydronephrosis large stone in renal pelvis
-s/p cystoscopy/ureteral stent placement.
-Intraoperative purulent drainage from right kidney, recultured follow-up report
-Monitor for any hematuria
Afib/rvr - Improved
-started on oral metoprolol as tolerating diet
-Patient was maintained on heparin drip, can be resumed back to Eliquis at discharge -neuro/cardio input reviewed
TME from sepsis - improved
Dementia without behavioral problems
-May require nighttime antipsychotics/mitts if any signs of sundowning
Right MCA area CVA
h/o seizure
- maintain on keppra
- maintain on asa/statin
Essential HTN - uncontrolled
- dose of metoprolol increased by cards
- PRN hydralazine added
-Adding Procardia 30 mg twice daily with holding parameter
Generalized weakness
-PT recommended short rehab stay, CM informed
Full code
Care plan discussed with urology
09/20 family updated.
Anticipated Discharge: 24 - 48 hours
Subjective/Interval History
-
Date of Service: September 24, 2023
Resting comfortably in bed
Afebrile overnight
Objective Data
-
Labs:
Laboratory Results
09/23/23 09/24/23 09/24/23
23:47 07:13 14:00
WBC 11.2 H
Hgb 13.5
Hct 39.1
Plt Count 200
APTT 42.3 H 58.3 H Pending
Sodium 137
Potassium 4.2
Chloride 102
Carbon Dioxide 26
BUN 27 H
Creatinine 0.8
Glucose 143 H
Calcium 8.7
Vital Signs:
Vital Signs
Temp Pulse Resp BP Pulse Ox
98.0 F 95 18 139/95 95
09/24/23 07:16 09/24/23 10:07 09/24/23 07:16 09/24/23 10:07 09/24/23 08:00
I&O
09/23/23 09/24/23 09/25/23
06:59 06:59 06:59
Intake Total 480 / 480 150 / 150
Balance 480 / 480 150 / 150
Review of Systems
-
Unable to obtain full review of systems at this time due to: Dementia
Physical Exam
-
General: No Apparent Distress and Comfortable
HEENT: Negative Oxygen
Respiratory: Clear to Auscultation
Cardiac: Regular Rhythm and S1/S2; Negative Murmur or Rub
Neuro: Awake, Alert, No Motor Deficits and Nonfocal/Grossly Intact
Psych: Calm
[2023-09-24 11:22] VITALS: BP 136/89
--- NOTE | 2023-09-24 11:56 | W.PN.URO.CBU ---
Today's Communication / Plan
-
Continue antibiotic 10 days
Outpatient urology follow up
Assessment / Plan
-
78M with septic UTI, treated with abx but found to have persistent low grade fevers
CT showing malrotated ectopic pelvic R kidney with hydronephrosis, stones, and evidence of ascending UTI
now s/p R ureteral stent placement 09/23
- Continue antibiotic - okay to switch to any appropriate PO agent per cultures
- Recommend additional 10 days antibiotic treatment due to stones and poorly draining R kidney
- Okay to resume Eliquis
- Eventually will need more definitive management of chronic hydronephrosis and stones. In his case the best management strategy may be R nephrectomy
- Will arrange outpatient follow up after discharge
Diagnosis
-
Date of Service: September 24, 2023
-
Patient Diagnosis:
Pelvic kidney
UTI
Hydronephrosis
Post Op Day:
Subjective
-
urinating without issue
No hematuria per nursing
fevers resolved
Objective
-
Vital Signs
Temp Pulse Resp BP Pulse Ox
98.4 F 90 14 136/89 94
09/24/23 11:22 09/24/23 11:22 09/24/23 11:22 09/24/23 11:22 09/24/23 11:22
Intake and Output
09/23/23 09/24/23 09/25/23
06:59 06:59 06:59
Intake Total 480 / 480 150 / 150
Balance 480 / 480 150 / 150
Intake:
Oral fluids 480 / 480
IV fluids (Total) 150 / 150
normosol 150 / 150
Other:
Number of approximated MODERATE 2 1
amounts of urine
Number of approximated LARGE 2
amounts of urine
How many times incontinent 1 2
MODERATE amount urine
How many times incontinent 1 2
SATURATED amount urine
Laboratory Results
09/24/23 07:13
09/24/23 07:13
Physical Exam
-
General - well developed, well nourished, no acute distress
Chest - clear
Abdomen - soft, non-tender
Skin - warm & dry with no rash
Neuro - no motor deficits
Extremities - no cyanosis, no edema
[2023-09-24] MEDS: HEPARIN 25000 UNITS/250 ML IV (12:43)
[2023-09-24 14:02] LABS: APTT 72.7 Sec (23.4-35.0)
--- NOTE | 2023-09-24 14:03 | W.PN.CARDCBS ---
Today's Communication / Plan
-
Remains rate controlled atrial fibrillation on increased Lopressor 75 mg twice daily.
Procardia added for better blood pressure control by primary service.
Continue IV heparin. Likely resume Eliquis if no further procedures planned and patient tolerating anticoagulation.
Recent echo reviewed, EF preserved
Impression / Plan
-
Primary foster care therapist: Dr. Ward
Impression:
Presentation 09/19/2023 with lethargy, weakness
UTI/E.coli sepsis
Leukocytosis
JANEY
Right hydronephrosis secondary to malrotated right kidney status post right ureteral stent placement September 23, 2023
Elevated lactic acid
Presumed TME
Ectopic right kidney w/ renal pelvic stone on CT a/p 09/21/2023
elevated troponin, suspected non-ischemic myocardial injury
dementia
history of CVA with residual L hemiparesis
Permanent atrial fibrillation
chronic OAC with eliquis
chronic RBBB
seizure disorder
HTN
HLD
type 2 DM
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
Seizure disorder
ECHO 09/19/23: EF 55 to 60%, mild AR, trace TR, PAP 20 mmHg
Echo 05/19/2022: EF 55 to 60%, mild MR, mild TR
Plan:
HPI: Presented 09/19/2023 with lethargy, weakness and found to have UTI/Sepsis with Ecoli Bacteremia.
Remains rate controlled atrial fibrillation on increased Lopressor 75 mg twice daily.
Procardia added for better blood pressure control by primary service.
Continue IV heparin. Likely resume Eliquis if no further procedures planned and patient tolerating anticoagulation.
Recent echo reviewed, EF preserved
Continue medical therapy for non-PR troponin.
Patient underwent right ureteral stent placement September 23, 2023 for right hydronephrosis secondary to right malrotated kidney
Continue antibiotics as per primary service.
Daughter expressed interest in transitioning cardiology care to [facility] cardiology upon d/c
Discussed with nursing
Progress Note - Reinforcement Maker
Subjective
Date of Service: September 24, 2023
Patient seen and examined. He denies chest pain or shortness of breath.
Objective
Labs:
09/24/23 07:13
09/24/23 07:13
Labs
Hgb 13.5 g/dL (13.0-18.0) 09/24/23 07:13
Hct 39.1 % (39.0-52.0) 09/24/23 07:13
Plt Count 200 10^3/uL (130-400) 09/24/23 07:13
APTT 58.3 Sec (23.4-35.0) H 09/24/23 07:13
Sodium 137 mmol/L (135-145) 09/24/23 07:13
Potassium 4.2 mmol/L (3.5-5.1) 09/24/23 07:13
BUN 27 mg/dl (9-20) H 09/24/23 07:13
Creatinine 0.8 mg/dL (0.7-1.3) 09/24/23 07:13
Glucose 143 mg/dl (70-99) H 09/24/23 07:13
Vital Signs and I&O:
Vital Signs
Temp Pulse Resp BP Pulse Ox
98.4 F 90 14 136/89 94
09/24/23 11:22 09/24/23 11:22 09/24/23 11:22 09/24/23 11:22 09/24/23 11:22
Vital Signs
Temp Pulse Resp BP Pulse Ox
98.4 F 90 14 136/89 94
09/24/23 11:22 09/24/23 11:22 09/24/23 11:22 09/24/23 11:22 09/24/23 11:22
Intake & Output
09/22/23 09/23/23 09/24/23 09/25/23
06:59 06:59 06:59 06:59
Intake Total 480 / 480 480 / 480 150 / 150
Balance 480 / 480 480 / 480 150 / 150
Physical Exam
Physical Exam
General: No acute distress, awake and alert
Neck: Negative JVD
Heart: Irregularly irregular, Negative S3 positive S1/S2, Negative S4, No murmur
Lungs: CTA b/l, negative wheezes/rales/rhonchi
Abd: Positive BS, NT/ND, neg rebound/rigidity/guarding
Ext: Negative cyanosis/clubbing/edema
Neuro: nonfocal
[2023-09-24 15:36] VITALS: BP 121/78
[2023-09-24] MEDS: DESYREL 100 MG PO (17:17)
[2023-09-24] MEDS: ROCEPHIN 1000 MG IV (17:43)
[2023-09-24] MEDS: STERILE WATER FOR INJECTION 10 ML IV (17:43)
[2023-09-24 20:45] LABS: APTT 57.2 Sec (23.4-35.0)
[2023-09-24 23:21] VITALS: BP 117/74
[2023-09-25 02:52] LABS: Hematocrit 41.1 % (39.0-52.0); Mean Corp Hgb Conc. 34.1 g/dL (33.0-37.0); Mean Corpuscular Hgb 29.8 pg (27.0-31.0); Mean Corpuscular Volume 87.4 fL (80.0-94.0); Mean Platelet Volume 10.8 fL (7.4-10.4); Platelet Count 221 10^3/uL (130-400); Red Cell Dist. Width 13.6 % (11.5-14.5); White Blood Cell Count 11.4 10^3/uL (4.8-10.8)
[2023-09-25 03:10] LABS: APTT 89.4 Sec (23.4-35.0)
[2023-09-25 03:49] LABS: Blood Urea Nitrogen 24 mg/dl (9-20); Calcium 8.6 mg/dl (8.4-10.2); Carbon Dioxide 27 mmol/L (22-30); Chloride 105 mmol/L (98-107); Estimated Creatinine Clearance 76 ml/min; Glucose 114 mg/dl (70-99); Potassium 3.5 mmol/L (3.5-5.1); Sodium 138 mmol/L (135-145); eGFR > 60.00
[2023-09-25 04:21] VITALS: BMI 32.5
[2023-09-25] MEDS: KEPPRA 500 MG PO ×2 (05:07→17:46)
[2023-09-25] MEDS: HEPARIN 25000 UNITS/250 ML IV (06:56)
[2023-09-25 07:15] VITALS: BP 146/82
[2023-09-25] MEDS: LIPITOR 40 MG PO (07:52)
[2023-09-25] MEDS: LOPRESSOR 100 MG PO (07:52)
[2023-09-25] MEDS: PROCARDIA XL (EXTENDED RELEASE) 30 MG PO (07:52)
--- NOTE | 2023-09-25 09:08 | W.PN.CARDCBS ---
Today's Communication / Plan
-
Stable cardiac status
We will sign off
Please call if questions
Impression / Plan
-
Primary school crossing guard supervisor: Dr. Ward
Impression:
Presentation 09/19/2023 with lethargy, weakness
UTI/E.coli sepsis
Leukocytosis
JANEY
Right hydronephrosis secondary to malrotated right kidney status post right ureteral stent placement September 23, 2023
Elevated lactic acid
Presumed TME
Ectopic right kidney w/ renal pelvic stone on CT a/p 09/21/2023
elevated troponin, suspected non-ischemic myocardial injury
dementia
history of CVA with residual L hemiparesis
Permanent atrial fibrillation
chronic OAC with eliquis
chronic RBBB
seizure disorder
HTN
HLD
type 2 DM
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
Seizure disorder
ECHO 09/19/23: EF 55 to 60%, mild AR, trace TR, PAP 20 mmHg
Echo 05/19/2022: EF 55 to 60%, mild MR, mild TR
Plan:
HPI: Presented 09/19/2023 with lethargy, weakness and found to have UTI/Sepsis with Ecoli Bacteremia.
Remains rate controlled atrial fibrillation on increased Lopressor 75 mg twice daily.
Procardia added for better blood pressure control by primary service.
Continue IV heparin. Likely resume Eliquis if no further procedures planned and patient tolerating anticoagulation.
Recent echo reviewed, EF preserved
Continue medical therapy for non-[place] troponin.
Patient underwent right ureteral stent placement September 23, 2023 for right hydronephrosis secondary to right malrotated kidney
Continue antibiotics as per primary service.
Daughter expressed interest in transitioning cardiology care to [facility] cardiology upon d/c
Discussed with nursing
Progress Note - Nitroglycerin Neutralizer
Subjective
Date of Service: September 25, 2023:
He appears comfortable, now back on Eliquis. Metoprolol tartrate has been uptitrated to 100 mg twice daily. Nifedipine ER 30 mg twice daily added for hypertension.
He offers no complaints but given dementia, language barrier, possibly CVA history is difficult to obtain
No allergies
Outpatient medications: Apixaban 5 mg twice daily, aspirin 81 mg a day, atorvastatin 40 mg a day, Keppra 500 every 12, metoprolol tartrate 25 twice daily, trazodone 100 mg at bedtime
Current medications: Atorvastatin 40 mg daily, Keppra 500 mg every 12, trazodone 100 mg at bedtime, ceftriaxone 1 g every 24, metoprolol tartrate 100 mg twice daily nifedipine ER 30 mg twice daily, new, apixaban 5 mg twice daily
PMH/PSH/FH/SH: Reviewed
Review of systems: Not obtainable
Hemoglobin 14, platelets 221, potassium 3.5, BUN and creatinine 24 and 0.9
Objective
Labs:
09/25/23 02:41
09/25/23 02:41
Labs
Hgb 14.0 g/dL (13.0-18.0) 09/25/23 02:41
Hct 41.1 % (39.0-52.0) 09/25/23 02:41
Plt Count 221 10^3/uL (130-400) 09/25/23 02:41
APTT Cancelled 09/25/23 09:30
Sodium 138 mmol/L (135-145) 09/25/23 02:41
Potassium 3.5 mmol/L (3.5-5.1) 09/25/23 02:41
BUN 24 mg/dl (9-20) H 09/25/23 02:41
Creatinine 0.9 mg/dL (0.7-1.3) 09/25/23 02:41
Glucose 114 mg/dl (70-99) H 09/25/23 02:41
Vital Signs and I&O:
Vital Signs
Temp Pulse Resp BP Pulse Ox
36.8 C 98 20 146/82 96
0226/24 07:15 09/25/23 07:52 09/25/23 07:15 09/25/23 07:52 09/25/23 07:15
Vital Signs
Temp Pulse Resp BP Pulse Ox
36.8 C 98 20 146/82 96
09/25/23 07:15 09/25/23 07:52 09/25/23 07:15 09/25/23 07:52 09/25/23 07:15
Intake & Output
09/23/23 09/24/23 09/25/23 09/26/23
07:59 07:59 07:59 07:59
Intake Total 480 / 480 150 / 150
Balance 480 / 480 150 / 150
Physical Exam
Physical Exam
146/82, 160/112, pulse 70s to 100
No distress, head neck exam unremarkable, lungs are clear, irregular rate and rhythm without obvious murmurs, abdomen benign, left hemiparesis, no edema
[2023-09-25] MEDS: ELIQUIS 5 MG PO (09:57)
--- NOTE | 2023-09-25 13:38 | W.PN.HOSP.TC ---
Addendum entered and electronically signed by Caesar Felix MD 09/25/23 14:56:
More than 30 minutes spent in discharge including
Final examination of the patient
Summarizing hospital stay
Instructions for continuing care to all relevant caregivers
Preparation of discharge records, prescriptions, and referral forms
Total time spent (in minutes):41
Original Note:
Today's Communication/Plan
-
await SNF placement
Assessment / Plan
Assessment / Plan
Assessment:
UTI/Sepsis
E. coli UTI/Bacteremia
- repeat Urine/blood samples now with no growth
- continue Rocephin, at discharge, transition to Cefdinir for additional 9 days Abx.
Right ectopic kidney
Right hydronephrosis with large renal pelvic stone
- Ct a/p done due to nonresolution of fever despite appropriate abx therapy
- Incidentally found to having large right ectopic kidneys, hydronephrosis large stone in renal pelvis
- s/p cystoscopy/ureteral stent placement 09/23
- Monitor for any hematuria; pink urine currently which is expected
Non-OK trop elevation
Perm Afib
- continue BB/Eliquis
TME from sepsis - improved
Dementia without behavioral problems
- May require nighttime antipsychotics/mitts if any signs of sundowning
Right MCA area CVA
h/o seizure
- maintain on Keppra
- maintain on asa/statin
Essential HTN - uncontrolled
- dose of metoprolol increased by cards
- PRN hydralazine added
- continue Procardia
Generalized weakness
- PT/OT - SNF recommended, CM aware
DVT ppx: Eliquis
Code: Full
Anticipated Discharge: Within 24 hours
Subjective/Interval History
-
Date of Service: September 25, 2023
no acute events
feels well, no complaints
Objective Data
-
Labs:
Laboratory Results
09/25/23 09/25/23
02:41 09:30
WBC 11.4 H
Hgb 14.0
Hct 41.1
Plt Count 221
APTT 89.4 H Cancelled
Sodium 138
Potassium 3.5
Chloride 105
Carbon Dioxide 27
BUN 24 H
Creatinine 0.9
Glucose 114 H
Calcium 8.6
Vital Signs:
Vital Signs
Temp Pulse Resp BP Pulse Ox
98.3 F 98 20 146/82 96
09/25/23 07:15 09/25/23 07:52 09/25/23 07:15 09/25/23 07:52 09/25/23 07:15
I&O
09/24/23 09/25/23 09/26/23
06:59 06:59 06:59
Intake Total 150 / 150
Balance 150 / 150
Physical Exam
-
General: No Apparent Distress
HEENT: Normocephalic and Atraumatic
Respiratory: Negative Wheezes or Rales
Cardiac: Regular Rhythm and S1/S2
GI: Soft
Genito-urinary: No Costovertebral Tender
Musculoskeletal: No Edema
Neuro: AO x 3
Psych: Calm
Data Reviewed
-
Total Time Spent with Patient (in minutes): 45
Labs: Labs Reviewed by me
[2023-09-25 14:00] VITALS: BP 114/78; BP 118/73; PULSE 90
--- NOTE | 2023-09-25 14:55 | W.DS.TRANS ---
DC Summary - Research Consultant
-
Discharge Instructions:
Sleep Apnea Risk Intermediate
Discharge Diagnosis/Procedures UTI with sepsis/bacteremia from E. Coli with
stent placement on 09/23 for hydronephrosis from
stone
Diet Regular
Activity As tolerated
Bathing Restrictions None
Instructions:
Stand-Alone Forms:
Changes to Home Medications: No
Discharge Medications:
DC Medications w/original date entered in [employer]
apixaban 5 mg tablet (Eliquis) 5 mg PO BID Blood Clot Prevention/Tx 09/19/23
aspirin 81 mg tablet,delayed release 81 mg PO DAILY Blood Clot Prevention/Tx 09/19/23
atorvastatin 40 mg tablet 40 mg PO DAILY High Cholesterol 09/19/23
levetiracetam 500 mg tablet 500 mg PO Q12 Seizures 09/19/23
trazodone 100 mg tablet 100 mg PO QPM sleep 09/19/23
cefdinir 300 mg capsule 300 mg PO Q12H #20 caps 09/25/23
metoprolol tartrate 100 mg tablet 100 mg PO BID #60 tabs 09/25/23
nifedipine 30 mg tablet,extended release 30 mg PO BID #60 tabs 09/25/23
Home Medication Changes
Pending Results: No
Total time spent discharging patient (in min): 41
[2023-09-25 15:10] VITALS: BP 136/93
--- NOTE | 2023-09-25 15:36 | W.PN.URO.CBU ---
Today's Communication / Plan
-
10 days additional antibiotic course post op
Outpatient follow up to discuss stent management
Assessment / Plan
-
78M with septic UTI, treated with abx but found to have persistent low grade fevers
CT showing malrotated ectopic pelvic R kidney with hydronephrosis, stones, and evidence of ascending UTI
now s/p R ureteral stent placement 09/23
- Continue antibiotic - okay to switch to any appropriate PO agent per cultures
- Recommend additional 10 days antibiotic treatment post op due to stones and poorly draining R kidney
- Okay to resume Eliquis
- Eventually will need more definitive management of chronic hydronephrosis and stones. In his case the best management strategy may be R nephrectomy
- Will arrange outpatient follow up after discharge - office will call to schedule
Diagnosis
-
Date of Service: September 25, 2023
-
Patient Diagnosis:
Pelvic kidney
UTI
Hydronephrosis
Post Op Day:
Subjective
-
No events overnight
Fevers resolved
Objective
-
Vital Signs
Temp Pulse Resp BP Pulse Ox
98.3 F 98 20 146/82 96
09/25/23 07:15 09/25/23 07:52 09/25/23 07:15 09/25/23 07:52 09/25/23 08:00
Intake and Output
09/24/23 09/25/23 09/26/23
06:59 06:59 06:59
Intake Total 150 / 150
Balance 150 / 150
Intake:
IV fluids (Total) 150 / 150
normosol 150 / 150
Other:
Number of approximated MODERATE 1 3
amounts of urine
How many times incontinent 2
MODERATE amount urine
How many times incontinent 2 2
SATURATED amount urine
Laboratory Results
09/25/23 02:41
09/25/23 02:41
Physical Exam
-
General - well developed, well nourished, no acute distress
Chest - clear
Abdomen - soft, non-tender
Genitalia - normal
Skin - warm & dry with no rash
[2023-09-25 15:52] LABS: COVID-19 Antigen Negative (Negative)
--- NOTE | 2023-09-25 17:27 | CM ---
CM following re: d/c planning
Chart reviewed
Pt is medically stable for d/c
Pt will be discharged to [facility] and has a 6:30pm p/u time
CM completed LOMN & inhouse transport forms and provided to
CM obtained insurance auth through [employer] & details provided below
CM called and spoke with the patient's daughter Amina and IMM was reviewed over the phone and filed on chart
No additional d/c needs to note
CM sent a TT message to [facility] admissions at [facility] to inform of p/u time
PLAN; d/c to [facility]
Report: [id number]

Pt approved for 5 days SNF level 1
Auth details provided by Sharon Diallo
Pt approved with SOC 09/25/23 with NRD 09/29/23
Authorization # [id number]
Contact #
[facility] Auth# [id number]
[2023-09-25] MEDS: ROCEPHIN 1000 MG IV (17:46)
[2023-09-25] MEDS: STERILE WATER FOR INJECTION 10 ML IV (17:46)
[2023-09-25] MEDS: DESYREL 100 MG PO (17:46)
[2023-09-25 18:27] VITALS: BP 117/75
== END 2023-09-25 19:14 | DRG 853 ==
LOC: 4 EAST ACU 12:51
PROVIDERS: Physician Assistant Medical; ADMITTING PHYSICIAN Hospitalist; ATTENDING PHYSICIAN Internal Medicine; CONSULT PHYSICIAN Nuclear Medicine Nuclear Cardiology; CONSULT PHYSICIAN Urology; EMERGENCY PHYSICIAN Emergency Medicine; FAMILY PHYSICIAN Family Medicine
PROC: 0T768DZ Dilation of Right Ureter with Intraluminal Device, Via Natural or Artificial Opening Endoscopic (ICD-10-PCS; 2023-09-23)
PROC: BT1D1ZZ Fluoroscopy of Right Kidney, Ureter and Bladder using Low Osmolar Contrast (ICD-10-PCS; 2023-09-23)
DX: A41.9 Sepsis, unspecified organism (principal); G92.8 Other toxic encephalopathy; I63.9 Cerebral infarction, unspecified; I48.21 Permanent atrial fibrillation; N13.6 Pyonephrosis; I5A Non-ischemic myocardial injury (non-traumatic); I69.354 Hemiplegia and hemiparesis following cerebral infarction affecting left non-dominant side; N17.9 Acute kidney failure, unspecified; E87.20 Acidosis, unspecified; N39.0 Urinary tract infection, site not specified; Z87.891 Personal history of nicotine dependence; R65.20 Severe sepsis without septic shock; Z11.52 Encounter for screening for COVID-19; G47.00 Insomnia, unspecified; Z79.01 Long term (current) use of anticoagulants; G40.909 Epilepsy, unspecified, not intractable, without status epilepticus; Z79.82 Long term (current) use of aspirin; I10 Essential (primary) hypertension; E78.00 Pure hypercholesterolemia, unspecified; Q63.2 Ectopic kidney; B96.20 Unspecified Escherichia coli [E. coli] as the cause of diseases classified elsewhere; F03.90 Unspecified dementia, unspecified severity, without behavioral disturbance, psychotic disturbance, mood disturbance, and anxiety
CPT/HCPCS: 70450; 74022; 74176; 74420; 76000; 80048; 80053; 80177; 81003; 81015; 82962; 83605; 83735; 84443; 84484; 85025; 85027; 85730; 87040; 87077; 87086; 87088; 87186; 87205; 87502; 87811; 92610; 93005; 93306; 96361; 96374; 96375; 97116; 97162; 97167; 97535; 99291; C2617

== ENCOUNTER → 2023-10-13 10:10 | Outpatient (REF) | payer MEDICARE, OTHER, SELFPAY | LOC: RAD 10:10 | PROVIDERS: ATTENDING PHYSICIAN Urology; FAMILY PHYSICIAN Family Medicine | DX: Q63.2 Ectopic kidney (principal); N13.5 Crossing vessel and stricture of ureter without hydronephrosis | CPT/HCPCS: 78708; A9539 ==

== ENCOUNTER 2023-12-21 06:37 | Inpatient (IN) | payer MEDICARE, OTHER, SELFPAY ==
[2023-12-07 09:31] VITALS: BMI 31.8
[2023-12-07 09:52] LABS: Hematocrit 38.9 % (39.0-52.0); Hemoglobin 13.3 g/dL (13.0-18.0); Mean Corp Hgb Conc. 34.2 g/dL (33.0-37.0); Mean Corpuscular Hgb 30.3 pg (27.0-31.0); Mean Corpuscular Volume 88.6 fL (80.0-94.0); Red Blood Cell Count 4.39 10^6/uL (4.70-6.10); Red Cell Dist. Width 13.4 % (11.5-14.5)
[2023-12-07 09:54] LABS: INR 1.44; PT 17.6 Sec (11.4-14.6)
[2023-12-07 09:55] LABS: APTT 32.6 Sec (23.4-35.0)
[2023-12-07 09:58] LABS: Urine Albumin 1+ (Neg - Trace); Urine Bilirubin 1+ (Negative); Urine Character Very Cloudy (Clear); Urine Color Yellow; Urine Glucose Negative (Negative); Urine Ketone Negative (Negative); Urine Leukocyte 1+ (Negative); Urine Nitrite Negative (Negative); Urine Occult Blood 4+ (Negative); Urine Specific Gravity 1.025 (<1.030); Urine Urobilinogen Negative (Neg - 1+)
[2023-12-07 10:00] LABS: Blood Urea Nitrogen 14 mg/dl (9-20); Calcium 9.7 mg/dl (8.4-10.2); Carbon Dioxide 28 mmol/L (22-30); Chloride 107 mmol/L (98-107); Estimated Creatinine Clearance 70 ml/min; Glucose 108 mg/dl (70-99); Potassium 4.6 mmol/L (3.5-5.1); Sodium 141 mmol/L (135-145); eGFR > 60.00
[2023-12-07 10:05] LABS: Urine Squamous Cell >30 /LPF (Few)
[2023-12-07 10:06] LABS: Urine Bacteria Moderate (Negative); Urine Red Blood Cell 50-60 /HPF (0-2)
--- NOTE | 2023-12-14 10:14 | PTCARENOTE ---
INR 1.44 collected on 12/07/23; Mariella at 's office was notified.
--- NOTE | 2023-12-14 14:51 | PTCARENOTE ---
Abn ECG, Dr. Mendoza notified, no requests made.
[2023-12-21] VITALS (17 sets, daily range): BP systolic 121–161; BP diastolic 77–107; BMI 31.8
[2023-12-21] MEDS: NORMOSOL-R 1000 IV (06:40)
[2023-12-21] MEDS: TYLENOL 1000 MG PO (07:09)
--- NOTE | 2023-12-21 12:10 | W.IMMPOSTOP ---
Surgical Immed Post Op Note
-
Primary Surgeon: Jeffery
Assisting Surgeon: Maria R
Pre-op Diagnosis: R pelvic kidney, chronic UPJ obstruction
Post-op Diagnosis: same
Procedure Performed: Robotic R nephrectomy of pelvic kidney
Anesthesia Type: general
Specimen / Cultures: R kidney
Estimated Blood Loss: 50cc
Complications: none
Operative Findings: n/a
[2023-12-21] MEDS: NSS 1000 IV ×2 (12:16→21:24)
[2023-12-21 12:36] LABS: Hematocrit 37.7 % (39.0-52.0); Hemoglobin 12.8 g/dL (13.0-18.0)
[2023-12-21 12:49] LABS: Blood Urea Nitrogen 15 mg/dl (9-20); Calcium 8.6 mg/dl (8.4-10.2); Carbon Dioxide 26 mmol/L (22-30); Chloride 107 mmol/L (98-107); Estimated Creatinine Clearance 70 ml/min; Glucose 147 mg/dl (70-99); Sodium 140 mmol/L (135-145); eGFR > 60.00
[2023-12-21] MEDS: SUBLIMAZE 50 MCG IV ×2 (12:51→13:30)
[2023-12-21] MEDS: APRESOLINE 5 MG IV ×2 (13:27→14:05)
[2023-12-21 14:13] LABS: Glucose - Point of Care 144 mg/dl (70-99)
--- NOTE | 2023-12-21 14:30 | PTCARENOTE ---
Patient admitted from [facility] right laparoscopic nephrectomy.The patient denies any pain.Vital signs are stable.All 7 incisions are clean and dry without drainage.The patient is in his bed with the call pyle in reach.
[2023-12-21] MEDS: DESYREL 100 MG PO (17:45)
[2023-12-21] MEDS: LOVENOX 40 MG SC (17:45)
[2023-12-21] MEDS: SENOKOT 8.59999999999999964 MG PO (19:56)
[2023-12-21] MEDS: KEPPRA 500 MG PO (19:56)
[2023-12-21] MEDS: LOPRESSOR 12.5 MG PO (22:12)
[2023-12-22] VITALS (8 sets, daily range): BP systolic 120–155; BP diastolic 78–100; PULSE 84; O2SAT 98
[2023-12-22] MEDS: PERCOCET 5/325 1 TABLET PO (00:24)
[2023-12-22 05:19] LABS: Hematocrit 34.3 % (39.0-52.0); Hemoglobin 11.9 g/dL (13.0-18.0); Mean Corp Hgb Conc. 34.7 g/dL (33.0-37.0); Mean Corpuscular Hgb 30.9 pg (27.0-31.0); Mean Corpuscular Volume 89.1 fL (80.0-94.0); Mean Platelet Volume 11.6 fL (7.4-10.4); Platelet Count 190 10^3/uL (130-400); Red Blood Cell Count 3.85 10^6/uL (4.70-6.10); Red Cell Dist. Width 13.4 % (11.5-14.5); White Blood Cell Count 12.6 10^3/uL (4.8-10.8)
[2023-12-22 05:52] LABS: Blood Urea Nitrogen 15 mg/dl (9-20); Calcium 8.6 mg/dl (8.4-10.2); Carbon Dioxide 23 mmol/L (22-30); Chloride 109 mmol/L (98-107); Estimated Creatinine Clearance 70 ml/min; Glucose 111 mg/dl (70-99); Potassium 4.4 mmol/L (3.5-5.1); Sodium 139 mmol/L (135-145); eGFR > 60.00
--- NOTE | 2023-12-22 06:00 | PTCARENOTE ---
León catheter removed at 06:00 per MD electronic order; León UOP 800cc of bloody urine; DTV by 12:00pm.
--- NOTE | 2023-12-22 08:33 | W.PN.URO.CBU ---
Today's Communication / Plan
-
78M s/p robotic R nephrectomy of pelvic kidney 12/21/23
- Regular diet
- León out
- Ambulate - PT/OT
- CM for home care/home PT if needed
- Trend renal function - normal today
- Plan for discharge tomorrow if stable
Diagnosis
-
Date of Service: December 22, 2023
-
Patient Diagnosis:
R UPJ obstruction
Pelvic kidney
Dementia
Post Op s/p robotic R nephrectomy of pelvic kidney
Subjective
-
no events overnight
pain controlled
tolerated liquids
Objective
-
Vital Signs
Temp Pulse Resp BP Pulse Ox
98.8 F 93 16 130/78 98
12/22/23 07:00 12/22/23 07:00 12/22/23 07:00 12/22/23 07:00 12/22/23 07:00
Intake and Output
12/21/23 12/22/23 12/23/23
06:59 06:59 06:59
Intake Total 1200 / 1200
Output Total 950 / 950
Balance 250 / 250
Intake:
IV fluids (Total) 1200 / 1200
Output:
Urine, León 950 / 950
Laboratory Results
12/22/23 04:45
12/22/23 04:45
Physical Exam
-
General - well developed, well nourished, no acute distress
Chest - clear
Abdomen - soft, approp tender
Skin - warm & dry with no rash
Neuro - AOx3, no motor deficits
Extremities - no clubbing, no cyanosis, no edema
Incision - clean, dry
Dressing - clean, dry, intact
[2023-12-22] MEDS: LIPITOR 40 MG PO (09:32)
[2023-12-22] MEDS: KEPPRA 500 MG PO ×2 (09:32→20:02)
[2023-12-22] MEDS: SENOKOT 8.59999999999999964 MG PO ×2 (09:33→20:02)
[2023-12-22] MEDS: ASPIR LOW (ENTERIC COATED) 81 MG PO (09:33)
[2023-12-22] MEDS: ROCEPHIN 1000 MG IV (09:35)
[2023-12-22] MEDS: STERILE WATER FOR INJECTION 10 ML IV (09:35)
--- NOTE | 2023-12-22 10:34 | CM ---
CM received consult for discharge planning for home PT vs SNF, will watch for PT/OT evaluations for recommendations. Patient seen bedside, initial assessment completed. Patient resides with his , daughter Amina, son in law, and two grandchildren
in a multiple story home, two steps to enter. Patient denies DME in the home, reports history of home PT, unsure with who, reports acute rehab at [facility] about five years ago after his stroke. Patient confirms PCP Bishnu Gonzalez, pharmacy
[facility]. Patients daughter Amina can be contacted for any questions/concerns [phone]. CM will continue to follow for discharge planning needs.
Plan; watch for PT/OT evals for recommendations upon d/c.
[2023-12-22] MEDS: DESYREL 100 MG PO (18:45)
[2023-12-22] MEDS: LOVENOX 40 MG SC (18:45)
[2023-12-22] MEDS: LOPRESSOR 12.5 MG PO (22:40)
[2023-12-23 03:23] VITALS: BP 135/93
[2023-12-23 05:22] LABS: Hematocrit 31.9 % (39.0-52.0); Hemoglobin 11.1 g/dL (13.0-18.0); Mean Corp Hgb Conc. 34.8 g/dL (33.0-37.0); Mean Corpuscular Hgb 30.8 pg (27.0-31.0); Mean Corpuscular Volume 88.6 fL (80.0-94.0); Mean Platelet Volume 11.4 fL (7.4-10.4); Platelet Count 173 10^3/uL (130-400); Red Cell Dist. Width 13.5 % (11.5-14.5)
[2023-12-23 05:46] LABS: Blood Urea Nitrogen 17 mg/dl (9-20); Calcium 8.4 mg/dl (8.4-10.2); Carbon Dioxide 25 mmol/L (22-30); Chloride 108 mmol/L (98-107); Estimated Creatinine Clearance 64 ml/min; Glucose 102 mg/dl (70-99); Potassium 3.8 mmol/L (3.5-5.1); Sodium 139 mmol/L (135-145); eGFR > 60.00
[2023-12-23 07:34] VITALS: BP 143/98
[2023-12-23] MEDS: KEPPRA 500 MG PO (08:16)
[2023-12-23] MEDS: SENOKOT 8.59999999999999964 MG PO (08:16)
[2023-12-23] MEDS: LIPITOR 40 MG PO (08:16)
[2023-12-23] MEDS: ASPIR LOW (ENTERIC COATED) 81 MG PO (08:16)
--- NOTE | 2023-12-23 10:05 | W.PN.URO.CBU ---
Today's Communication / Plan
-
Home today
Assessment / Plan
-
Stable 2 days s/p robotic right pelvic kidney nephrectomy
Diagnosis
-
Date of Service: December 23, 2023
-
:
Patient Diagnosis:
R UPJ obstruction
Pelvic kidney
Dementia
Post Op s/p robotic R nephrectomy of pelvic kidney 12/21/23
Subjective
-
Comfortable
Voiding well
Passing flatus
Objective
-
Vital Signs
Temp Pulse Resp BP Pulse Ox
98.3 F 92 17 143/98 97
12/23/23 07:34 12/23/23 07:34 12/23/23 07:34 12/23/23 07:34 12/23/23 08:16
Intake and Output
12/22/23 12/23/23 12/24/23
06:59 06:59 06:59
Intake Total 1200 / 1200 460 / 460
Output Total 950 / 950
Balance 250 / 250 460 / 460
Intake:
Oral fluids 460 / 460
IV fluids (Total) 1200 / 1200
Output:
Urine, León 950 / 950
Other:
Number of approximated MODERATE 2
amounts of urine
Laboratory Results
12/23/23 04:46
12/23/23 04:46
Review of Systems
-
Constitutional: No Symptoms
Respiratory: No Symptoms
Cardiac: No Symptoms
: No Symptoms
Physical Exam
-
General - well developed, well nourished, no acute distress
Abdomen - soft, non-tender, incisions clean/dry
--- NOTE | 2023-12-23 10:08 | W.DS.TRANS ---
DC Summary - [place] Slinger
-
Discharge Instructions:
Sleep Apnea Risk Intermediate
Discharge Diagnosis/Procedures R UPJ obstruction
R pelvic kidney
Diet No restrictions
Activity No strenuous activity
Additional Activity avoid lifting, straining, strenuous activity for
4 weeks
Driving Restrictions As prior to admission
Bathing Restrictions None
Wound Care gently rinse incisions in the shower. Don't
scrub or pull off glue
Instructions:
Stand-Alone Forms:
Changes to Home Medications: No
Discharge Medications:
DC Medications w/original date entered in [employer]
apixaban 5 mg tablet (Eliquis) 5 mg PO BID Blood Clot Prevention/Tx 09/19/23
aspirin 81 mg tablet,delayed release 81 mg PO DAILY Blood Clot Prevention/Tx 09/19/23
atorvastatin 40 mg tablet 40 mg PO DAILY High Cholesterol 09/19/23
levetiracetam 500 mg tablet 500 mg PO Q12 Seizures 09/19/23
trazodone 100 mg tablet 100 mg PO QPM sleep 09/19/23
metoprolol tartrate 25 mg tablet 12.5 mg PO HS Blood Pressure 12/19/23
cefdinir 300 mg capsule 300 mg PO Q12H Infection 12/22/23
oxycodone-acetaminophen 5 mg-325 mg tablet 1 tab PO Q4HPRN PRN moderate pain #10 tabs 12/22/23
Home Medication Changes
Pending Results: No
[2023-12-23 11:15] VITALS: BP 136/94
--- NOTE | 2023-12-23 16:40 | CM ---
met with patient at bedside.she is sp right robo assisted nephectomy. patient is voiding,eating,amb 200ft.he is stable to dc home with no needs.patint signed imm letter.family to transport home.
== END 2023-12-23 13:08 | disposition home or self-care (01) | DRG 660 ==
LOC: 2 SOUTH 06:37
PROVIDERS: ADMITTING PHYSICIAN Urology; FAMILY PHYSICIAN Family Medicine
PROC: 8E0W4CZ Robotic Assisted Procedure of Trunk Region, Percutaneous Endoscopic Approach (ICD-10-PCS; 2023-12-21)
PROC: 0TT04ZZ Resection of Right Kidney, Percutaneous Endoscopic Approach (ICD-10-PCS; 2023-12-21)
DX: N13.1 Hydronephrosis with ureteral stricture, not elsewhere classified (principal); I48.21 Permanent atrial fibrillation; I69.354 Hemiplegia and hemiparesis following cerebral infarction affecting left non-dominant side; F03.90 Unspecified dementia, unspecified severity, without behavioral disturbance, psychotic disturbance, mood disturbance, and anxiety; I48.91 Unspecified atrial fibrillation
CPT/HCPCS: 88307; 36415; 80048; 81003; 81015; 82962; 85014; 85018; 85027; 85610; 85730; 86850; 86900; 86901; 97162; 97166

== ENCOUNTER 2025-03-16 15:03 | Emergency (ER) | payer MEDICARE, OTHER, SELFPAY ==
[2025-03-16 15:16] VITALS: BP 125/69
[2025-03-16 15:39] LABS: Hematocrit 39.4 % (39.0-52.0); Hemoglobin 13.2 g/dL (13.0-18.0); Mean Corp Hgb Conc. 33.5 g/dL (33.0-37.0); Mean Corpuscular Volume 90.2 fL (80.0-94.0); Nucleated Red Blood Cells % 0 % (-); Platelet Count 203 10^3/uL (130-400); Red Cell Dist. Width 13.1 % (11.5-14.5)
[2025-03-16 16:01] LABS: ALT (SGPT) 17 U/L (0-50); AST (SGOT) 23 U/L (17-59); Albumin 4.6 g/dl (3.5-5.0); Alkaline Phosphatase 51 U/L (38-126); Blood Urea Nitrogen 16 mg/dl (9-20); Calcium 9.4 mg/dl (8.4-10.2); Carbon Dioxide 26 mmol/L (22-30); Chloride 109 mmol/L (98-107); Glucose 142 mg/dl (70-99); Potassium 4.4 mmol/L (3.5-5.1); Sodium 143 mmol/L (135-145); Total Protein 7.6 g/dl (6.3-8.2); eGFR > 60.00
[2025-03-16 17:56] VITALS: BMI 30.8
[2025-03-16 18:01] VITALS: BP 128/82
[2025-03-16 18:05] LABS: Urine Character Slightly Cloudy (Clear)
[2025-03-16 18:14] LABS: Urine Red Blood Cell >100 /HPF (0-2)
[2025-03-16 19:00] VITALS: BP 134/93
[2025-03-16] MEDS: ROCEPHIN 1000 MG IV (19:39)
--- NOTE | 2025-03-16 20:50 | ED.GENMED ---
History of Present Illness
General
Chief Complaint: Male Genito-Urinary Symptoms
Source: patient
Exam Limitations: none
Time Seen by Provider: 03/16/25 17:23
History of Present Illness
History of Present Illness:
Note:
CHIEF COMPLAINT(S)
Urinary incontinence and rapid decline in mental status.
HISTORY OF PRESENT ILLNESS
The patient is a 79-year-old male with a history of atrial fibrillation and past kidney removal, presented with a rapid decline in mental status over the past day. According to the family member, the patient has been soiling himself, which is
unusual for him. The onset of symptoms was sudden, with notable incontinence and increased urinary frequency. There was a concern for a urinary tract infection as he reported dysuria during bathroom visits. The patient denies any fever, nausea,
vomiting, chest pain, or shortness of breath. He has a past medical history of a stroke in 2019 secondary to atrial fibrillation and is currently on anticoagulation therapy with apixaban.
PAST MEDICAL AND SURGICAL HISTORY
- Atrial fibrillation
- Stroke in 2020
- Kidney removal
MEDICATIONS
The patient is currently on apixaban for atrial fibrillation.
REVIEW OF SYSTEMS
- Urinary: Dysuria, urinary incontinence, increased frequency
- Neurological: Rapid decline in mental status
PHYSICAL EXAM
General: Alert, no acute distress.
Skin: Warm, dry.
Head: Normocephalic, atraumatic.
Neck: Supple, trachea midline.
Eye Ears, nose, mouth and throat: Oral mucosa moist.
Cardiovascular: Normal peripheral perfusion, No edema.
Respiratory: Respirations are non-labored.
Gastrointestinal : Abdomen nondistended
Back: Normal range of motion, Normal alignment.
Musculoskeletal: Normal ROM, normal strength.
Neurological: Alert and oriented to person, place, time, and situation, No focal neurological deficit observed.
Psychiatric: Cooperative, appropriate mood & affect.
PLAN
1. Review lab results, particularly focusing on urinalysis and urine culture, to confirm a urinary tract infection.
2. If a urinary tract infection is confirmed, administer a dose of intravenous antibiotics followed by oral antibiotics at discharge.
3. Consider non-pharmacological interventions, such as leg elevation, to address the edema.
4. Await urine culture and sensitivities to potentially adjust antibiotic therapy based on results.
5. Provide instructions to the family to monitor the patient�s symptoms, particularly any worsening of mental status or new symptoms.
DIFFERENTIAL DIAGNOSIS
The Differential Diagnosis includes, in no particular order and is not limited to:
1. Urinary tract infection
2. Delirium due to infection
3. Dehydration
4. Reaction to medication
5. Heart failure exacerbation
6. Hypernatremia or hyponatremia
7. Acute kidney injury
8. Prostatitis
9. Sepsis
10. Hyperkalemia or hypokalemia
Disposition:
SUMMARY OF ENCOUNTER
The patient is a 79-year-old male presented with urinary symptoms, suspected to be due to a urinary tract infection (UTI). A CT scan revealed a prior right nephrectomy and appendectomy, suggested left-sided obstructive uropathy, mild left
perinephric stranding unchanged from a previous CT, and 2.9 by 1.6 cm stones in the midline urinary bladder. The decision was made to discharge the patient with a prescription for an antibiotic to treat the UTI.
DISPOSITION
Discharge.
ASSESSMENT
The patient is likely experiencing a urinary tract infection with suspected left-sided obstructive uropathy and bladder stones.
PLAN
Prescribe antibiotics to treat the suspected urinary tract infection. Instruct the patient and family on signs of worsening symptoms and when to return for care if needed.
INDEPENDENT REVIEW OF LABS AND INTERPRETATION OF TESTS
- My independent interpretation of the CT scan shows a right nephrectomy and a prior appendectomy, with indications of left-sided obstructive uropathy, mild perinephric stranding, and bladder stones.
PATIENT EDUCATION AND COUNSELING
Discussed [id number] instructions with the patients daughter, who was present at the bedside. She had no further questions at this time.
FOLLOW-UP INSTRUCTIONS
Advised if symptoms worsen or no improvement is seen, return to the emergency department for further evaluation.
MEDICATION RECONCILIATION
Prescribed cefalexin (Keflex) to treat the urinary tract infection.
MEDICAL DECISION MAKING
- Number and Complexity of Problems Addressed: Chronic conditions affecting care include past medical history of nephrectomy and appendectomy. Differential diagnosis includes urinary tract infection, obstructive uropathy, and bladder stones.
- Data:
- Category 1: Reviewed CT scan showing previous right nephrectomy and appendectomy, left-sided obstructive uropathy, mild left perinephric stranding, and bladder stones.
- Category 2: Input from the patient�s daughter regarding history and current symptoms.
- Risk: Consideration of Admission/Observation: Escalation of care including admission/observation was considered given the complexity and risk of the patients presenting complaint, exam findings, and underlying comorbidities. However, ultimately I
feel the patient is safe for outpatient management with close follow-up. Reasoning: Work-up reassuring, does not reveal any acute life/organ threatening processes, patients symptoms well controlled upon reevaluation, reexamination is reassuring,
vitals are stable, patient agreeable with discharge, and reliable for follow-up.
DIAGNOSIS
- Urinary tract infection (N39.0)
- Left-sided obstructive uropathy (N13.1)
- Bladder stones (N21.8)
Past History
Past History
ED Past Medical History: Arrthythmia (Atrial fib), CVA (Left sided weakness), HTN, Hypercholesterolemia, NIDDM and Seizures
ED Past Surgical History: None
Social History
Tobacco: Former smoker
Alcohol: Occasional
Personal:
Living: with family
Phy Exam
Physical Exam
Physical Exam:
.
General Physical Exam
General Presentation: well appearing and no apparent distress
General age: appears stated age
General Skin: warm and dry
General Habitus: elderly
General Mental: usual mental status (Early dementia according to daughter)
General Hydration: appears well hydrated
Course
Orders/Labs/Results
Orders:
Orders
03/16/25 15:28
CMP [Comprehensive Metabolic Panel] Urgent
Complete Blood Count/With Diff Urgent
03/16/25 17:57
Urinalysis Reflex To Culture Urgent
Date Specimen was Collected: 03/16/25
Time Specimen was Collected: 17:56
Urine Microscopic Reflex Cult Urgent
Urine Culture Urgent
MAHAMED Source: U
Specimen Description:
Date Specimen was Collected: 03/16/25
Time Specimen was Collected: 17:56
03/16/25 19:01
CefTRIAXone [Rocephin] 1,000 mg IV NOW STA
03/16/25 19:59
CT Abd/pel Without Iv Or Oral Urgent
Comment:
Reason For Exam: hmaturia, uninephric, pain
Abnormal Lab Results
03/16/25 03/16/25
15:28 17:57
RBC 4.37 L 10^6/uL
(4.70-6.10)
MPV 10.7 H fL
(7.4-10.4)
Chloride 109 H mmol/L
(98-107)
Glucose 142 H mg/dl
(70-99)
Total Bilirubin 1.4 H mg/dl
(0.2-1.3)
Urine Ketones 1+ A
(Negative)
Ur Occult Blood Reflex 4+ A
(Negative)
Urine Bilirubin 1+ A
(Negative)
Leukocyte Esterase Rfl 1+ A
(Negative)
Urine RBC >100 A /HPF
(0-2)
Urine Bacteria (Reflex) Many A
(Negative)
Urine Albumin (Reflex) 3+ A
(Neg - Trace)
03/16/25 15:28
03/16/25 15:28
Vital Signs
Initial and Last Documented VS:
Initial Vital Signs
Temp Pulse BP Pulse Ox
98.5 F 71 125/69 96
03/16/25 15:16 03/16/25 15:16 03/16/25 15:16 03/16/25 15:16
Last Documented Vital Signs
Temp Pulse BP Pulse Ox
98.5 F 71 134/93 96
03/16/25 15:16 03/16/25 15:16 03/16/25 19:00 03/16/25 20:52
*Pulse Oximetry
SaO2: 96
Oxygen Mode of Delivery: Room air
Patient hypoxic: no
*Critical Care Note
Total Time (30-74mins, 75-104mins- exclusive of procedures): Not Applicable
ED Attending Note
-
Portions of this chart may have been created with voice recognition software.� Occasional wrong word or��sound alike� substitutions may have occurred due to the inherent limitations of voice recognition software.
Discharge Plan
Departure
Patient Disposition: Home (Routine Discharge)
Date of Disposition: 03/16/25
Time of Disposition: 20:51
Patient with high blood pressure during this ER visit?: Yes
Discharge Problem:
UTI (urinary tract infection)
Instructions: Blood in the Urine (Hematuria), Adult (DC), Urinary tract infection in adults - ED discharge instructions, BLOOD PRESSURE
Prescriptions:
New
cephalexin 500 mg capsule
500 mg PO QID 10 Days Qty: 40 0RF
No Action
atorvastatin 40 mg Tablet
40 mg PO DAILY
levetiracetam 500 mg Tablet
500 mg PO Q12
aspirin 81 mg Tablet,Delayed Release (Dr/Ec)
81 mg PO DAILY
Eliquis 5 mg Tablet
5 mg PO BID
trazodone 100 mg Tablet
100 mg PO QPM
metoprolol tartrate 25 mg Tablet
12.5 mg PO HS
oxycodone-acetaminophen 5-325 mg Tablet
1 tab PO Q4HPRN PRN (Reason: moderate pain) Qty: 10 0RF
Referrals:
Bishnu Gonzalez MD [Family Provider, Family Practice]
Activity Restrictions/Additional Instructions:
Thank You for choosing [facility].
It was a pleasure meeting you and taking part in your care. We hope for your continued healing and wellness.
Please read discharge instructions in their entirety. However, they are for general education and may not describe your exact diagnosis at discharge. Information on your ER visit and medical conditions were discussed with you along with appropriate
follow up information...
If indicated, please take your medications as instructed and indicated on discharge paperwork.
Please schedule a follow up appointment as directed. Call to schedule an appointment
Please return to the emergency department with ANY change in, persisting, or worsening of symptoms. If any of your symptoms do not improve, or persist, or become more severe within 6-12 hours, please return to the emergency department for further
care.
Please return to the emergency department if you develop a headache, neck pain/stiffness, fever greater than 100.4F, chest pain, shortness of breath, persistent nausea, vomiting, slurred speech, difficulty walking, numbness/tingling, weakness, signs
of infection or any other symptoms that are worrisome to you.
If you have any questions or concerns please do not hesitate to call the Hospital at or E-mail me directly at [email or web address]
Interventions
Interventions:
*Risk Screen - Suicide Last Done: 03/16/25 15:18
*General Assessment Last Done: 03/16/25 15:18
*Neglect/Abuse Screening Last Done: 03/16/25 18:02
*ED- Fall Risk Assessment Last Done: 03/16/25 18:02
*ED COVID-19 Vaccine History Last Done: 03/16/25 15:18
*Nursing Disposition Last Done: 03/16/25 21:19
ED-Male Genitourinary Assessment Last Done: 03/16/25 18:02
Discharge Date and Time
Discharge Date/Time: 03/16/25 21:22
Print Language: LEBANESE
== END 2025-03-16 21:22 | disposition home or self-care (01) ==
LOC: EMR 15:03
PROVIDERS: Emergency Medicine; EMERGENCY PHYSICIAN Student in an Organized Health Care Education/Training Program; FAMILY PHYSICIAN Family Medicine
DX: N39.0 Urinary tract infection, site not specified (principal); E11.9 Type 2 diabetes mellitus without complications; I48.91 Unspecified atrial fibrillation; I10 Essential (primary) hypertension; E78.00 Pure hypercholesterolemia, unspecified; I69.354 Hemiplegia and hemiparesis following cerebral infarction affecting left non-dominant side; N21.0 Calculus in bladder; Z79.01 Long term (current) use of anticoagulants; Z79.82 Long term (current) use of aspirin; Z87.891 Personal history of nicotine dependence; Z90.5 Acquired absence of kidney
CPT/HCPCS: 99284; 96374; 74176; 80053; 81003; 81015; 85025; 87086

== ENCOUNTER → 2025-07-02 08:05 | Outpatient (REF) | payer MEDICARE, OTHER, SELFPAY ==
[2025-07-02 09:09] LABS: Hematocrit 39.7 % (39.0-52.0); Hemoglobin 13.1 g/dL (13.0-18.0); Mean Corp Hgb Conc. 33.0 g/dL (33.0-37.0); Mean Corpuscular Volume 89.8 fL (80.0-94.0); Platelet Count 205 10^3/uL (130-400); Red Cell Dist. Width 13.3 % (11.5-14.5)
[2025-07-02 10:21] LABS: Blood Urea Nitrogen 12 mg/dl (9-20); Calcium 9.3 mg/dl (8.4-10.2); Carbon Dioxide 30 mmol/L (22-30); Chloride 105 mmol/L (98-107); Glucose 100 mg/dl (70-99); Potassium 4.1 mmol/L (3.5-5.1); Sodium 140 mmol/L (135-145); eGFR > 60.00
== END ==
LOC: SDSPAT 08:05
PROVIDERS: ATTENDING PHYSICIAN Urology; FAMILY PHYSICIAN Student in an Organized Health Care Education/Training Program
DX: Z01.818 Encounter for other preprocedural examination (principal)
CPT/HCPCS: 80048; 85027; 93005

== ENCOUNTER 2025-07-04 06:21 | Day surgery (SDC) | payer MEDICARE, OTHER, SELFPAY ==
[2025-07-02 13:50] VITALS: BMI 31.1
[2025-07-04 12:16] VITALS: BP 173/99
[2025-07-04 12:29] VITALS: BMI 31.1
[2025-07-04] MEDS: NORMOSOL-R/PLASMALYTE-A 1000 IV (12:36)
--- NOTE | 2025-07-04 13:44 | PTCARENOTE ---
Patient was totally incontinent and was changed at 1345 today. Patient also brought to the bathroom to completely empty his bladder.
[2025-07-04 16:34] VITALS: BP 142/92; BP 173/99
[2025-07-04 16:45] VITALS: BP 131/93
[2025-07-04 17:00] VITALS: BP 148/97
[2025-07-04 17:05] VITALS: BP 154/91
[2025-07-04 17:20] VITALS: BP 148/88
== END 2025-07-04 17:37 | disposition home or self-care (01) ==
LOC: SDS 06:21
PROVIDERS: ATTENDING PHYSICIAN Urology; FAMILY PHYSICIAN Family Medicine
DX: N21.0 Calculus in bladder (principal)
CPT/HCPCS: 52317